=== PATIENT | female | born 1995 | race Caucasian/White ===

== ENCOUNTER 2019-11-03 09:21 | Emergency (ER) | payer OTHER, MEDICAID, SELFPAY ==
[2019-11-03 09:22] VITALS: RESP 18
--- NOTE | 2019-11-03 09:26 | ED_ITS ---
HPI - General: Chief complaint: General Medical Stated complaint: Cramps/preg Time Seen by Provider: 11/03/19 09:25 Source: patient Mode of arrival: ambulatory Limitations: no limitations History of Present Illness: HPI Narrative: Patient comes in today for complaints of pelvic cramping. Patient had a positive test at home 4 to 5 days ago. Patient reports last period was the first or second week of September 2019. Patient reports vaginal discharge but no bleeding. Patient appears well. Patient appears in mild to no pain. Review of Systems General: Reports: 10 or more systems reviewed and unremarkable except in HPI and below : Reports: pelvic pain (cramping during ) PFSH ED PFSH: Statuses (acute, chronic, etc) shown below reflect problem list status as previously entered and may not be historically accurate Social History Smoking and tobacco status: former smoker Physical Exam Const: COMMON NORMALS: no apparent distress and oriented x3 GENERAL APPEARANCE: cooperative HENMT: COMMON NORMALS: normocephalic, external ears normal, EAC's normal, TM's normal bilaterally and external nose normal HEAD & SCALP: normal to inspection and normocephalic FACE & SINUS: normal facial exam NOSE: external nose normal GENERAL EAR: hearing not grossly impaired EXTERNAL EAR: Yes external ears normal EXTERNAL AUDITORY CANAL: EAC's normal TYMPANIC MEMBRANE: TM's normal bilaterally MOUTH: oral and palatal mucosa normal THROAT: posterior oropharynx normal Eye: COMMON NORMALS: PERRL and EOMs intact bilaterally PUPIL: Yes PERRL Neck/C-Spine: COMMON NORMALS: full ROM and no lymphadenopathy Lymph: LYMPHATIC: no lymphedema noted Chest: COMMONS NORMALS: inspection of chest normal and palpation of chest normal Resp: COMMON NORMALS: normal respiratory effort and clear to auscultation bilaterally AUSCULTATION: clear to auscultation bilaterally Cardio: COMMON NORMALS: regular rate and regular rhythm RATE: regular rate RHYTHM: regular rhythm GI: COMMON NORMALS: normal to inspection, nondistended, normoactive bowel sounds and non-tender : COMMON NORMALS: Yes no CVA tenderness BLADDER/KIDNEY EXAM: Yes no CVA tenderness EXTERNAL FEMALE EXAM: Yes normal appearance of the urethra and Yes other (increase vaginal discharge) Back/Pelvis: COMMON NORMALS: no CVA tenderness and thoracic and lumbar spine normal to inspection Extremity: COMMON NORMALS: normal to inspection GENERAL: No edema Neuro: COMMON NORMALS: oriented x3, moves all extremities and no focal motor deficits Psych: COMMON NORMALS: mental status grossly normal and cooperative Skin: COMMON NORMALS: no rashes or lesions noted GENERAL SKIN EXAM: no rashes or lesions noted Course Vital Signs: Vital signs: Vital Signs Temperature 97.5 F L 11/03/19 09:28 Pulse Rate 72 11/03/19 11:44 Respiratory Rate 16 11/03/19 11:44 Blood Pressure 106/53 11/03/19 11:44 Pulse Oximetry 100 11/03/19 11:44 MDM - OB/Uterine Contractions MDM Narrative: Medical decision making narrative: Patient comes in with concerns of pelvic cramping and vaginal discharge. On exam patient has no abdominal pain with palpation. No CVA tenderness. External vaginal area was normal except for increased discharge. Respirations are even lungs are clear to auscultation. Skin is warm and dry and color is pink. Vital signs are stable. Differential diagnosis includes miscarriage, threatened spontaneous , UTI, vaginitis, STI, PID, ectopic . Ultrasound noted no ectopic and intrauterine . Urinalysis was normal. Wet prep showed no signs of trichomonas, yeast, or clue cells. Patient was B positive for her blood type, and laboratory values were insignificant. Reassured patient that appears well. Discussed drinking plenty of fluids and monitoring for fever. Patient reports understanding agreed to plan with need for follow-up with [facility]. Patient reports getting appointment for [address] Ball. Lab Data: Labs: Lab Results 11/03/19 11/03/19 11/03/19 Range/Units 09:36 09:36 09:47 WBC 10.7 H (4.0-10.0) 10^3/ uL RBC 4.25 (4.1-5.3) 10^6/u L Hgb 13.1 (11.5-15.3) g/dL Hct 37.6 (37.0-47.0) % MCV 88.5 (81-99) fL MCH 30.8 (28.0-34.0) pg MCHC 34.8 (30.0-36.0) g/dL RDW 11.5 L (12.1-15.1) % Plt Count 309 (130-400) 10^3/c mm MPV 9.8 (7.4-10.4) fL Neut % (Auto) 67.7 % Lymph % (Auto) 20.1 % [place] % (Auto) 6.4 % Eos % (Auto) 5.0 % Baso % (Auto) 0.5 % Neut # (Auto) 7.3 (1.8-7.7) 10^3/u L Lymph # (Auto) 2.2 (0.8-4.8) 10^3/u L [place] # (Auto) 0.7 (0.2-0.9) 10^3/u L Eos # (Auto) 0.5 (0.0-0.8) 10^3/u L Baso # (Auto) 0.1 (0.0-0.1) 10^3/u L Nucleated RBC % (a uto) 0 % Nucleated RBCs # 0.0 /100WBC Sodium 134 L (136-145) mmol/L Potassium 3.7 (3.5-5.1) mmol/L Chloride 98 (98-107) mmol/L Carbon Dioxide 22 (22-29) mmol/L Anion Gap 17.7 (5-19) BUN 17 (6-20) mg/dL Creatinine 0.8 (0.5-0.9) mg/dL GFR Calculation 87.4 L (90-130) mL/min Glucose 99 (74-109) mg/dL Calcium 10.0 (8.5-10.5) mg/dL Total Bilirubin 0.2 (0.15-1.2) mg/dL AST 18 (0-32) U/L ALT 25 (0-33) U/L Alkaline Phosphata se 60 (35-105) IU/L Total Protein 7.4 (6.6-8.7) g/dL Albumin 4.7 (3.5-5.2) g/dL Globulin 2.7 (1.3-4.6) g/dL Lipase 49 (13-60) U/L Ser , [place] 35455.00 mIU/mL Urine Color (Yellow) Urine Appearance (CLEAR) Urine pH (5-7) Ur Specific Gravit y (1.005-1.030) Urine Protein (Negative) Urine Glucose (UA) (Normal) Urine Ketones (Negative) Urine Occult Blood (Negative) Urine Nitrate (Negative) Urine Bilirubin (NEGATIVE) Urine Urobilinogen (Negative) mg/dL Ur Leukocyte Leonor ase (Negative) Urine RBC (0-2) /hpf Urine WBC (0-5) /hpf Ur Squamous Epith Cells (0-5) Urine Bacteria (NONE) Urine Mucus Blood Type B Positive 11/03/19 Range/Units 09:48 WBC (4.0-10.0) 10^3/ uL RBC (4.1-5.3) 10^6/u L Hgb (11.5-15.3) g/dL Hct (37.0-47.0) % MCV (81-99) fL MCH (28.0-34.0) pg MCHC (30.0-36.0) g/dL RDW (12.1-15.1) % Plt Count (130-400) 10^3/c mm MPV (7.4-10.4) fL Neut % (Auto) % Lymph % (Auto) % [place] % (Auto) % Eos % (Auto) % Baso % (Auto) % Neut # (Auto) (1.8-7.7) 10^3/u L Lymph # (Auto) (0.8-4.8) 10^3/u L [place] # (Auto) (0.2-0.9) 10^3/u L Eos # (Auto) (0.0-0.8) 10^3/u L Baso # (Auto) (0.0-0.1) 10^3/u L Nucleated RBC % (a uto) % Nucleated RBCs # /100WBC Sodium (136-145) mmol/L Potassium (3.5-5.1) mmol/L Chloride (98-107) mmol/L Carbon Dioxide (22-29) mmol/L Anion Gap (5-19) BUN (6-20) mg/dL Creatinine (0.5-0.9) mg/dL GFR Calculation (90-130) mL/min Glucose (74-109) mg/dL Calcium (8.5-10.5) mg/dL Total Bilirubin (0.15-1.2) mg/dL AST (0-32) U/L ALT (0-33) U/L Alkaline Phosphata se (35-105) IU/L Total Protein (6.6-8.7) g/dL Albumin (3.5-5.2) g/dL Globulin (1.3-4.6) g/dL Lipase (13-60) U/L Ser , Paul i-Qnt mIU/mL Urine Color Yellow (Yellow) Urine Appearance Clear (CLEAR) Urine pH 5.0 (5-7) Ur Specific Gravit y 1.025 (1.005-1.030) Urine Protein Neg (Negative) Urine Glucose (UA) Norm (Normal) Urine Ketones Negative (Negative) Urine Occult Blood Neg (Negative) Urine Nitrate Negative (Negative) Urine Bilirubin Neg (NEGATIVE) Urine Urobilinogen Norm (Negative) mg/dL Ur Leukocyte Leonor ase Negative (Negative) Urine RBC 0-4 H (0-2) /hpf Urine WBC None (0-5) /hpf Ur Squamous Epith Cells 0-4 H (0-5) Urine Bacteria Trace (NONE) Urine Mucus Trace Blood Type Discharge Plan Discharge Patient Disposition: Home, Self-Care Clinical Impression: Abdominal pain affecting Qualifiers: Weeks of gestation: less than 8 weeks Qualified Code(s): Z3A.01 - Less than 8 weeks gestation of Condition: Stable Discharge Orders: Discharge Order (Routine); Ordered 11/03/19 Ordered By: Shankar Mora Discharge Diet: Advance as tolerated Discharge Activity: Increase activity as tolerated Patient Instructions: (ED) Activity Restrictions/Additional Instructions: Drink plenty of water Activity as tolerated Healthy diet and exercise Follow-up with [facility] for further treatment No smoking or drinking alcohol with We will contact you in regards to any outstanding labs if they are positive Return to ER for high fever or bleeding greater than one pad in a hour that is saturated. Discharge Date/Time: 11/03/19 11:46 Coding Level of Care Code ED Table Games Dealer for Tre Montemayor
[2019-11-03 09:28] VITALS: BP 143/76; RESP 16; TEMP 36.4; O2SAT 100; BMI 34.5
--- NOTE | 2019-11-03 09:33 | US_ITS ---
WS: [id number] EARLY OBSTETRICAL ULTRASOUND (<14 WEEKS). HISTORY: abd cramping, vaginal discharge COMPARISON: None available. Single intrauterine gestational sac is identified. Cardiac activity at 114 BPM. Ludell-rump length aisha sures 0.4 cm which corresponds to a gestation of 6w1d. Normal-appearing yolk sac and amnion demonstra jagruti. No subchorionic hemorrhage. No free fluid. RIGHT ovary is enlarged measuring 2.5 x 4.3 x 2.4 cm. There is a simple cyst within the RIGHT ovary m easuring 2.1 x 1.7 x 2.0 cm. Mild peripheral hyperemia. LEFT ovary is normal size at 1.8 x 3.0 x 1.8 cm. US/US OB <= 14 weeks fetus [id number] IMPRESSION: 1. Single intrauterine gestation of 7 weeks 0 days with an EDC of 06/21/2020. 2. RIGHT ovarian corpus luteal cyst.
[2019-11-03 09:40] LABS: Basophils # 0.1 10^3/uL (0.0-0.1); Basophils % 0.5 %; Eosinophils # 0.5 10^3/uL (0.0-0.8); Hematocrit 37.6 % (37.0-47.0); Hemoglobin 13.1 g/dL (11.5-15.3); Lymphocytes # 2.2 10^3/uL (0.8-4.8); Lymphocytes % 20.1 %; Mean Corpuscular HGB Conc 34.8 g/dL (30.0-36.0); Mean Corpuscular Hemoglobin 30.8 pg (28.0-34.0); Mean Corpuscular Volume 88.5 fL (81-99); Mean Platelet Volume 9.8 fL (7.4-10.4); Monocytes # 0.7 10^3/uL (0.2-0.9); Monocytes % 6.4 %; Neutrophils # 7.3 10^3/uL (1.8-7.7); Neutrophils % 67.7 %; Nucleated Red Blood Cells % 0 %; Platelet Count 309 10^3/cmm (130-400); Red Blood Count 4.25 10^6/uL (4.1-5.3); Red Cell Distribution Width 11.5 % (12.1-15.1); White Blood Count 10.7 10^3/uL (4.0-10.0)
[2019-11-03 10:08] LABS: Alanine Aminotransferase 25 U/L (0-33); Albumin Level 4.7 g/dL (3.5-5.2); Alkaline Phosphatase 60 IU/L (35-105); Anion Gap 17.7 (5-19); Aspartate Amino Transferase 18 U/L (0-32); Blood Urea Nitrogen 17 mg/dL (6-20); Carbon Dioxide 22 mmol/L (22-29); Chloride 98 mmol/L (98-107); Globulin 2.7 g/dL (1.3-4.6); Glomerular Filtration Rate 87.4 mL/min (90-130); Glucose 99 mg/dL (74-109); Lipase 49 U/L (13-60); Potassium 3.7 mmol/L (3.5-5.1); Sodium 134 mmol/L (136-145); Total Bilirubin 0.2 mg/dL (0.15-1.2); Total Protein 7.4 g/dL (6.6-8.7)
[2019-11-03 10:24] LABS: Bilirubin Urine Neg (NEGATIVE); Blood Urine Neg (Negative); Glucose Urine UA Norm (Normal); Ketones Urine Negative (Negative); Leukocyte Esterase Urine Negative (Negative); Nitrate Urine Negative (Negative); Protein Urine Neg (Negative); Specific Gravity, Urine 1.025 (1.005-1.030); Urine Appearance Clear (CLEAR); Urine Color Yellow (Yellow); Urobilinogen Urine Norm (Negative)
[2019-11-03 10:28] LABS: Add Urine Culture? No; Bacteria Urine TRACE; Mucus Urine TRACE; RBC Urine 0-4 /hpf (0-2); Squamous Epithelial Cell Urine 0-4 (0-5)
[2019-11-03 11:44] VITALS: BP 106/53; PULSE 72; RESP 16; O2SAT 100
--- NOTE | 2019-11-05 11:07 | DCPLANNER ---
Addendum entered by Meenu Parmar 11/27/19 09:49: [facility], called case advocate and stated that the clinic has tried numerous times to reach patient to schedule a follow up appointment and has not been able to reach patient to schedule an appointment. Addendum entered by Meenu Parmar 11/24/19 15:19: manager quality improvement called to confirm that a follow up appointment had been scheduled for patient, case advocate spoke with Marleny was told that an appointment has not been scheduled at this time, but that the clinic is working on scheduling an appointment. Original Note: manager quality improvement had message to schedule a follow up appointment for patient with [facility]. manager quality improvement called [facility], gave referral to [place]. manager quality improvement was told that referral would be given to Marleny. manager quality improvement will call for appointment information.
== END 2019-11-03 11:46 | disposition home or self-care (01) ==
PROVIDERS: Emergency Provider Nurse Practitioner Family
DX: O26.891 Other specified pregnancy related conditions, first trimester (principal); R10.9 Unspecified abdominal pain; Z3A.01 Less than 8 weeks gestation of pregnancy; Z87.891 Personal history of nicotine dependence
CPT/HCPCS: 36415; 76801; 80053; 81001; 83690; 84702; 85025; 86900; 87210; 99283

== ENCOUNTER → 2019-11-14 18:04 | Outpatient (BNVA) | payer OTHER, MEDICAID, SELFPAY | PROVIDERS: Visit Provider Family Medicine | DX: J10.1 Influenza due to other identified influenza virus with other respiratory manifestations (principal); R05 Cough | CPT/HCPCS: 81003; 87804 ==

== ENCOUNTER 2020-06-27 07:34 | Inpatient (IN) | payer MEDICAID, SELFPAY ==
[2020-06-27] VITALS (76 sets, daily range): BP systolic 0–165; BP diastolic 0–92; PULSE 28–128; RESP 16–22; TEMP 36.7–37.1; O2SAT 83–100; BMI 40.6
[2020-06-27] MEDS: miSOPROStol 100 mcg tablet 25 MCG VAGINAL ×2 (09:10→15:30)
[2020-06-27 10:29] LABS: Basophils # 0.1 10^3/uL (0.0-0.1); Basophils % 0.5 %; Eosinophils # 0.3 10^3/uL (0.0-0.8); Hematocrit 40.5 % (37.0-47.0); Hemoglobin 13.6 g/dL (11.5-15.3); Lymphocytes # 1.8 10^3/uL (0.8-4.8); Lymphocytes % 13.8 %; Mean Corpuscular HGB Conc 33.6 g/dL (30.0-36.0); Mean Corpuscular Hemoglobin 30.4 pg (28.0-34.0); Mean Corpuscular Volume 90.6 fL (81-99); Mean Platelet Volume 11.1 fL (7.4-10.4); Monocytes # 0.7 10^3/uL (0.2-0.9); Monocytes % 5.4 %; Neutrophils # 10.27 10^3/uL (1.8-7.7); Neutrophils % 77.6 %; Nucleated Red Blood Cells % 0 %; Platelet Count 279 10^3/cmm (130-400); Red Blood Count 4.47 10^6/uL (4.1-5.3); Red Cell Distribution Width 12.8 % (12.1-15.1); White Blood Count 13.2 10^3/uL (4.0-10.0)
[2020-06-27 10:36] LABS: Amphetamines Screen Urine Negative (Negative); Barbiturates Screen Urine Negative (Negative); Benzodiazepines Screen Urine Negative (Negative); Cocaine Screen Urine Negative (Negative); Opiate Screen Urine Negative (Negative); PCP Screen Urine Negative (Negative); THC Screen Urine Negative (Negative)
[2020-06-27] MEDS: lactated ringers 1,000 ML 999 ML IV ×3 (13:21→19:40)
[2020-06-27] MEDS: alum-mag-hydroxide-sime 30 mL UDC PO (15:50)
--- NOTE | 2020-06-27 16:12 | PC.NURSE ---
Nurse noted drop in FHR at 1540 and entered the room at 1541 to find the pt in supine position This nurse assisted pt to left lateral position and started a LR fluid bolus. FHR returned to normal baseline, with no accelerations. This nurse assisted pt to right lateral position at 1553. FHT improving and accelerations now present.
[2020-06-27] MEDS: fentaNYL 50 mcg/mL INJ 2mL IV (18:33)
--- NOTE | 2020-06-27 20:15 | P.ANESUD_ITS ---
Pre-Anesthetic Update Pre-Anesthetic Assessment: Date of Surgery/Procedure: 06/27/20 Preop Rosanna gnosis: IUP Any changes to Pre-Anesthetic Assessment?: No Labs Last 48hrs: Laboratory Results - last 48 hr 06/27/20 06/27/20 08:00 08:54 WBC 13.2 H RBC 4.47 Hgb 13.6 Hct 40.5 MCV 90.6 MCH 30.4 MCHC 33.6 RDW 12.8 Plt Count 279 MPV 11.1 H Neut % (Auto) 77.6 Lymph % (Auto) 13.8 [place] % (Auto) 5.4 Eos % (Auto) 2.0 Baso % (Auto) 0.5 Neut # (Auto) 10.27 H Lymph # (Auto) 1.8 [place] # (Auto) 0.7 Eos # (Auto) 0.3 Baso # (Auto) 0.1 Nucleated RBC % (a uto) 0 Nucleated RBCs # 0.0 Urine Opiates Scre en Negative Ur Barbiturates Sc reen Negative Ur Phencyclidine S crn Negative Ur Amphetamines Sc reen Negative U Benzodiazepines Scrn Negative Urine Cocaine Scre en Negative U Marijuana (THC) Screen Negative Vitals: Temperature 98.7 F 06/27/20 16:54 Temperature Source Oral 06/27/20 16:54 Pulse Rate 78 06/27/20 20:35 Pulse Rhythm 06/27/20 09:58 Pulse Strength 3+ Normal 06/27/20 09:58 Respiratory Rate 22 H 06/27/20 18:33 Respiratory Effort Non-Labored 06/27/20 20:00 Respiratory Depth Normal 06/27/20 20:00 Respiratory Patter n 06/27/20 20:00 Blood Pressure 0/0 06/27/20 20:40 Blood Pressure Malgorzata n 0 06/27/20 20:40 Pulse Oximetry 98 06/27/20 20:38 Oxygen Delivery Me thod 06/27/20 09:58 Exam: Pre-Anes Outpt Exam: alert, oriented x 3, clear to auscultation bilaterally and regular rate & rhythm Cardiac Studies: No Data to Display
--- NOTE | 2020-06-27 20:47 | ANES.PROC ---
Anesthesia Procedures Procedure/Date: 06/27/20 Epidural: Time Out Performed: Yes Consents Signed: Procedure Consent Consent: requested by attending/covering physician, from patient and emergency procedure Lumbar Level: L3-L4 Epidural position: sitting Epidural procedure: sterile prep of area, 1% lidocaine to numb the area, 18 g needle, neg for paresthesia, test dose given, 1.5% xylocaine 1:200k epi (3 cc), 0.2% Ropivacaine bolus ml (5 ml), placed PCEA, no systemic response, sterile dressing applied and 0.2% Ropiavacaine @ mls/hr (13) Additional Comments: OSKAR at 7 cm, threaded to 12.5 cm. Pain of contraction decreased from 8/10 to 3/10 after lidocaine 1.5% 5 cc and 5 ml pcea bolus. Still having pressure on anus.
[2020-06-27] MEDS: lactated ringers 1,000 ML 125 ML IV (21:27)
[2020-06-27] MEDS: diphenhydrAMINE 50 mg/mL SDV 1mL 25 MG IVP (23:32)
[2020-06-28] VITALS (25 sets, daily range): BP systolic 0–152; BP diastolic 0–89; PULSE 68–110; RESP 16–18; TEMP 36.6–37.1; O2SAT 97–99
[2020-06-28] MEDS: oxytocin 30 UNIT/500 ML BAG 600 UNIT IV (01:12)
--- NOTE | 2020-06-28 01:37 | PM.DELIVERY ---
Delivery Note: Date of delivery: June 28, 2020 this 25-year-old 1 now para 1 female with an EDC of 06/22/2020 was postdates and not making much change. Discussion was made with the patient regarding possible misoprostel cervical ripening for induction purposes. Her was present for the discussion. She agreed to proceed with misoprostol cervical ripening at around 40 weeks and 5 days gestation. She received 2 doses of misoprostol 25 mcg intravaginally and began having active labor. She became more uncomfortable and then went spontaneous rupture of membranes after epidural anesthesia was placed. The fluid was clear. There were the times when the heart tones were nonreassuring but that generally resolved with re-positioning the patient. She dilated to complete cervical dilatation and pushed for about an hour and a half for delivery by spontaneous vaginal delivery healthy, viable male infant at 010 1 AM. The was delivered in left occiput anterior position with suctioning of the mouth and the nose at the perineum followed by delivery of the remainder the infant. There was no nuchal cord. A small segment repeat to nd was made for the delivery with minimal extension. Upon delivery of the remainder of the infant the was suctioned again with bulb suction and laid on the mother's abdomen. At approximately 1 minute gestation the umbilical cord was clamped and then cut by the infant's father. Both cord had 3 blood vessels. The infant had Apgars of 8 and 9 at 1 and 5 minutes respectively and weighed 6 pounds 9 ounces. Midline second-degree episiotomy was sutured with Vicryl suture in layered closure. Estimated blood loss approximately 145 mL. Pre-Delivery Course: This patient was followed by this physician throughout her entire course without problems or concerns. Maternal blood type was B+ with antibody screen negative. Hepatitis B, hepatitis C, RPR and HIV were negative. Rubella was immune and group B strep was negative. She did continue her through 40 weeks gestation and after much discussion the decision was made to proceed with misoprostel correcting at 40 weeks and 5 days gestation. Delivery: Spontaneous vaginal delivery. Post-Delivery Status: Patient is doing well at this time and will be followed for routine post delivery care. A&P Assessment and plan (1) Normal spontaneous vaginal delivery: Patient will be followed for routine care. Will adjust treatment and orders as necessary. Status: Acute Coding Level of Care Code Acute Dope Mixer for Luisg Fwd Diagnoses Normal spontaneous vaginal delivery O80
[2020-06-28] MEDS: prenatal vitamin Capsule 1 CAP PO (08:09)
[2020-06-28] MEDS: docusate sodium 100 mg Capsule PO ×2 (08:09→18:09)
--- NOTE | 2020-06-28 10:04 | ANE.PACU2 ---
Inpatient post-anesthesia follow up: Airway intact: Yes Vital signs: Temperature 98.4 F Pulse Rate 68 Respiratory Rate 18 Blood Pressure 124/71 Pulse Oximetry 99 Oxygen Delivery Me thod Room Air Oxygen Flow Rate Fraction of Inspir ed Oxygen Hydration adequate: Yes Nausea and vomiting: No Pain level: 2 Mental status: Baseline Additional Comments: no headaches, no backpain, no signs of infection at neuraxial site, urinating ok, no lower extremity numbness/weakness
[2020-06-28 13:28] LABS: Hematocrit 36.5 % (37.0-47.0); Mean Corpuscular HGB Conc 32.9 g/dL (30.0-36.0); Mean Corpuscular Hemoglobin 30.5 pg (28.0-34.0); Mean Corpuscular Volume 92.6 fL (81-99); Mean Platelet Volume 10.4 fL (7.4-10.4); Platelet Count 232 10^3/cmm (130-400); Red Blood Count 3.94 10^6/uL (4.1-5.3); Red Cell Distribution Width 13.1 % (12.1-15.1); White Blood Count 18.2 10^3/uL (4.0-10.0)
--- NOTE | 2020-06-28 19:41 | PC.NURSE ---
Discussed and demonstrated nursing positions, how often to breastfeed, latching techniques, how to identify swallowing, hand expression, nursing bras and bra size.
[2020-06-29 06:18] VITALS: BP 141/99; PULSE 80; RESP 16; O2SAT 99
--- NOTE | 2020-06-29 06:56 | PM.OBGYDC ---
Discharge Providers IRRIGATOR VALVE PIPE Date of Admission: 06/27/20 07:34 Date of Discharge: 06/29/20 Attending Provider at Admission: Tanner Ball MD Attending Provider at Discharge: Tanner Ball MD Diagnoses at Discharge Discharge Diagnosis (1) Normal spontaneous vaginal delivery: Status: Acute Reason for Visit Reason for Visit: Induction of Labor Hospital Course Hospital Course: Patient has done well since delivery. She has mild lochia and is not passing much clots. She is ambulating well and tolerating a regular diet. Baby is breast-feeding fair and she was working with product safety specialist to assist this. Information Peripartum Data: Infant Delivery Method: Vaginal Physical Exam Const: COMMON NORMALS: no acute distress and patient oriented x3 Resp: COMMON NORMALS: normal respiratory effort, No retractions, No use of accessory muscles and clear to auscultation bilaterally AUSCULTATION: clear to auscultation bilaterally Cardio: COMMON NORMALS: regular rate, regular rhythm and No murmurs present (Cardio) RATE: regular rate RHYTHM: regular rhythm GI: COMMON NORMALS: Normal to inspection, nondistended, normoactive bowel sounds present, Soft to palpation (Fundus is firm.) and non-tender PALPATION: Yes Soft to palpation (Fundus is firm.) Extremity: COMMON NORMALS: normal to inspection, full ROM and no pedal edema Neuro: COMMON NORMALS: patient oriented x3, CN's II-XII intact bilaterally, moves all extremities and no focal motor deficits Psych: COMMON NORMALS: mental status grossly normal, Normal thought process present and activity/motor behavior normal THOUGHT PROCESS: Normal thought process present Urinary Catheter Management^: Gregg: Cath Placed During This Visit: yes, but has since been removed by the nurse Reason for Continuing Indwelling Catheter: Acute Urinary Retention or Obstruction Urinary Catheter Date of Insertion: 06/27/20 Urinary Catheter Time of Insertion: 21:20 Date Urinary Catheter Removed: 06/27/20 Time Urinary Catheter Discontinued: 22:46 Discharge Data Data Completed and Pending: Labs from last 24 hours 06/28/20 13:15 WBC 18.2 H RBC 3.94 L Hgb 12.0 Hct 36.5 L MCV 92.6 MCH 30.5 MCHC 32.9 RDW 13.1 Plt Count 232 MPV 10.4 Vitals: Last Vital Signs Temp 97.9 F 06/28/20 22:01 Pulse 80 06/29/20 06:18 Resp 16 06/29/20 06:18 BP 141/99 06/29/20 06:18 Pulse Ox 99 06/29/20 06:18 Discharge Plan Discharge Patient Disposition: Home Condition: Stable Prescriptions: New ibuprofen 800 mg Tablet 800 mg PO TID Qty: 90 RF: 3 docusate sodium 100 mg Capsule 100 mg PO BID Qty: 60 RF: 2 Continued omeprazole 10 mg Capsule,Delayed Release(Dr/Ec) 10 mg PO DAILY RF: 0 Vitamin Plus Low Iron 27 mg iron- 1 mg tablet 1 tab PO DAILY RF: 0 Discharge Orders: Discharge Order (Routine); Ordered 06/29/20 Ordered By: Tanner Ball Referrals: Tanner Ball MD [Physician] - (Follow-up with Dr. Ball in 6 weeks and as needed. Please make appointment before discharge.) Discharge Diet: Usual diet Discharge Activity: Resume usual activity Discharge Attestations IRRIGATOR VALVE PIPE Time Spent in Discharge Care*: less than 30 min Specific Discharge Activities: Specific discharge activities: educating patient, documenting/other paperwork and evaluating patient/reviewing data Status at Discharge: Cognitive status at discharge: cognitively intact, Behavioral status at discharge: cooperative, Functional status at discharge: independent ambulation Coding Level of Care Code Acute Clinical Laboratory Aide for Chg Fwd Diagnoses Normal spontaneous vaginal delivery O80
[2020-06-29] MEDS: prenatal vitamin Capsule 1 CAP PO (07:59)
[2020-06-29] MEDS: docusate sodium 100 mg Capsule PO (07:59)
[2020-06-29 09:30] VITALS: BP 106/70; PULSE 93; RESP 16; TEMP 36.7; O2SAT 97
[2020-06-29 09:50] VITALS: BP 106/70; PULSE 93; RESP 16; TEMP 36.7; O2SAT 97
== END 2020-06-29 09:50 | disposition home or self-care (01) | DRG 807 ==
PROVIDERS: Admitting Provider Family Medicine; Visit Provider Family Medicine
DX: O48.0 Post-term pregnancy (principal); Z37.0 Single live birth; Z3A.40 40 weeks gestation of pregnancy; O70.1 Second degree perineal laceration during delivery
CPT/HCPCS: 12345; 36415; 51702; 59409; 80306; 85025; 85027; 96374; 96375; 98960; J1200; J2795; J3010

== ENCOUNTER → 2020-10-18 16:33 | Outpatient (BNVA) | payer MEDICAID, SELFPAY | PROVIDERS: Visit Provider Nurse Practitioner Family | DX: Z20.828 Contact with and (suspected) exposure to other viral communicable diseases (principal); J06.9 Acute upper respiratory infection, unspecified | CPT/HCPCS: 87635 ==

== ENCOUNTER → 2022-10-01 16:20 | Outpatient (BNVA) | payer MEDICAID, SELFPAY | PROVIDERS: Visit Provider Registered Nurse Neonatal Intensive Care | DX: S93.402A Sprain of unspecified ligament of left ankle, initial encounter (principal); M79.672 Pain in left foot; X58.XXXA Exposure to other specified factors, initial encounter | CPT/HCPCS: 73610; 73630 ==

== ENCOUNTER 2022-10-11 12:40 | Emergency (ER) | payer MEDICAID, SELFPAY ==
[2022-10-11 12:50] VITALS: BP 131/87; PULSE 82; RESP 16; TEMP 36.4; O2SAT 99
--- NOTE | 2022-10-11 13:27 | XR_ITS ---
WS: [id number] Left ankle, 3 views, 10/11/2022 Clinical Data: persisting ankle pain after fall Comparison: Left ankle, 10/01/2022 Findings: No fractures or dislocations are seen. The ankle mortise is normal. The talus and calcaneus are unrem arkable. No soft tissue swelling over the medial or lateral malleolus is seen. XR/XR ankle LT min 3V* [id number] Impression: Negative left ankle.
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
== END 2022-10-11 15:14 | disposition home or self-care (01) ==
PROVIDERS: Emergency Provider Nurse Practitioner Family; PCP Family Medicine
DX: S93.402A Sprain of unspecified ligament of left ankle, initial encounter (principal); S96.912A Strain of unspecified muscle and tendon at ankle and foot level, left foot, initial encounter; Z87.891 Personal history of nicotine dependence; V19.3XXA Pedal cyclist (driver) (passenger) injured in unspecified nontraffic accident, initial encounter
CPT/HCPCS: 73610; 97760; 99283; L4361

== ENCOUNTER → 2023-01-08 10:45 | Outpatient (BNVA) | payer MEDICAID, SELFPAY | PROVIDERS: PCP Family Medicine; Visit Provider Nurse Practitioner Women's Health | DX: Z01.419 Encounter for gynecological examination (general) (routine) without abnormal findings (principal) | CPT/HCPCS: 87255; 87529; 88175 ==

== ENCOUNTER 2023-03-26 14:05 | Outpatient (CLI) | payer MEDICAID, SELFPAY ==
--- NOTE | 2023-03-26 15:30 | US_ITS ---
WS: [id number] ULTRASOUND RIGHT BREAST HISTORY: Palpable nodule RIGHT breast. 27-year-old. COMPARISON: None available. TECHNIQUE: 2-D and Doppler. Ultrasound RIGHT breast is directed to the palpable abnormality. At 12:00 there is very minimally com plex cyst with no increased vascularity. Complex cyst at 12:00, 3 cm from the nipple measures 8 x 3 x 10 mm. Low level echoes throughout. Suspect this may be a hemorrhagic cyst or cyst with increased pr otein content. US/US breast RT limited* [id number] IMPRESSION: BI-RADS: 3-Probably Benign FOLLOW-UP: 6 Month Follow-up Recommend 6 month follow-up RIGHT breast complex cyst at 12:00.
== END 2023-03-26 14:06 | disposition home or self-care (01) ==
PROVIDERS: PCP Family Medicine; Visit Provider Obstetrics & Gynecology
DX: N60.01 Solitary cyst of right breast (principal); N63.15 Unspecified lump in the right breast, overlapping quadrants
CPT/HCPCS: 76642

== ENCOUNTER 2023-05-02 10:10 | Emergency (ER) | payer MEDICAID, SELFPAY ==
[2023-05-02 10:16] VITALS: BP 130/87; PULSE 71; RESP 15; TEMP 36.8; O2SAT 97
[2023-05-02 10:47] LABS: Basophils # 0.1 10^3/uL (0.0-0.1); Basophils % 0.8 %; Eosinophils # 0.5 10^3/uL (0.0-0.8); Eosinophils % 5.2 %; Hematocrit 40.4 % (37.0-47.0); Hemoglobin 13.8 g/dL (11.5-15.3); Lymphocytes # 2.3 10^3/uL (0.8-4.8); Lymphocytes % 24.2 %; Mean Corpuscular HGB Conc 34.2 g/dL (30.0-36.0); Mean Corpuscular Hemoglobin 30.9 pg (28.0-34.0); Mean Corpuscular Volume 90.6 fl (81-99); Mean Platelet Volume 9.8 fL (7.4-10.4); Monocytes # 0.5 10^3/uL (0.2-0.9); Monocytes % 5.3 %; Neutrophils % 64.3 %; Nucleated Red Blood Cells % 0 %; Platelet Count 325 10^3/cmm (130-400); Red Blood Count 4.46 10^6/uL (4.1-5.3); Red Cell Distribution Width 12.6 % (12.1-15.1); White Blood Count 9.3 10^3/uL (4.0-10.0)
[2023-05-02 10:57] LABS: HCG, Serum Qual Negative (Negative)
[2023-05-02 11:16] LABS: Alanine Aminotransferase 23 U/L (0-33); Albumin Level 4.2 g/dL (3.5-5.2); Alkaline Phosphatase 80 U/L (35-105); Anion Gap 16.3 (5-19); Aspartate Amino Transferase 22 U/L (0-32); Blood Urea Nitrogen 17 mg/dL (6-20); Calcium 8.9 mg/dL (8.5-10.5); Carbon Dioxide 21 mmol/L (22-29); Chloride 106 mmol/L (98-107); Globulin 2.7 g/dL (1.3-4.6); Glucose 124 mg/dL (65-115); Lipase 31 U/L (13-60); Osmolality Calculated 291 mOsm/kg (285-295); Potassium 4.3 mmol/L (3.5-5.1); Sodium 139 mmol/L (136-145); Total Bilirubin 0.3 mg/dL (0.15-1.2); Total Protein 6.9 g/dL (6.6-8.7)
--- NOTE | 2023-05-02 11:44 | PC.PHAR ---
pt states she takes care of her own medications-pt states she is still taking prozac 20mg daily ext shows last filled 02/26/23 30d/s pt states she had a build up-pt states she hasnt gotten a depo shot since oct 2022 rx written 03/20/23-
[2023-05-02 11:50] LABS: Add Urine Microscopic? YES; Bilirubin Urine Neg (Negative); Blood Urine Neg (Negative); Glucose Urine UA Norm (Normal); Ketones Urine Negative (Negative); Leukocyte Esterase Urine Negative (Negative); Nitrate Urine Negative (Negative); Protein Urine Neg (Negative); Urine Appearance SL Hazy (CLEAR); Urine Color Yellow (Yellow); Urobilinogen Urine Norm (Negative); pH Urine 6 (5-7)
[2023-05-02 11:51] LABS: Add Urine Culture? No; Bacteria Urine 1+ /hpf; Mucus Urine 1+ /hpf; RBC Urine 0-4 /hpf (0-2); Squamous Epithelial Cell Urine 0-4 /hpf (0-5); WBC Urine 0-4 /hpf (0-5)
--- NOTE | 2023-05-02 12:00 | CT_ITS ---
WS: [id number] CT ABDOMEN PELVIS TECHNIQUE: Contrast-enhanced CT of the abdomen and pelvis with coronal and sagittal reformatted image s. CLINICAL INFORMATION: rlq pain, n/v COMPARISON: None. DLP: 880.[address] scans at [facility] use at least one of these dose optimization techniques: automated e xposure control; mA and/or kV adjustment per patient size (includes targeted exams where dose is matc hed to clinical indication); or iterative reconstruction. FINDINGS: Normal appendix in the RIGHT lower quadrant. No evidence of acute appendicitis. Normal liver. Normal portal vein and splenic vein. Normal spleen. Normal GE junction. Adrenal glands are normal. Normal renal parenchymal enhancement. No hydronephrosis. Gallbladder appears normal. Norm al caliber abdominal aorta. Tiny fat-containing umbilical hernia. Multifollicular ovaries bilaterally. Physiologic endometrial th ickening. No free fluid in the abdomen or pelvis. CT/CT abdomen pelvis w con* [id number] IMPRESSION: 1. Normal appendix RIGHT lower quadrant. No evidence of acute appendicitis. 2. No free fluid in the abdomen or pelvis. 3. Tiny fat-containing umbilical hernia. 4. No other acute findings.
[2023-05-02 12:20] VITALS: BP 130/69; PULSE 68; RESP 18; O2SAT 100
--- NOTE | 2023-05-02 12:22 | ED_ITS ---
HPI - Abdominal Pain General: Chief Complaint: Abdominal Pain Stated Complaint: abd pain Time Seen by Provider: 05/02/23 11:24 History of Present Illness: Patient presents to the ER today with complaints of right lower quadrant abdominal pain. Patient states the pain started approximately 2 days ago and has been getting worse. Patient does have nausea with this but no vomiting. Patient states she has never had this pain before. Patient states she also had some suprapubic tenderness but denies any dysuria. Review of Systems General: Reports: 10 or more systems reviewed and unremarkable except in HPI and below PFSH ED PFSH: Family History Denies family history of Cervical cancer Colon cancer Ovarian cancer Diabetes Breast cancer Hypertension Uterine cancer Thyroid disease Stroke Social History Smoking and tobacco status: former smoker Alcohol intake: never Substance/Drug Use: never Physical Exam Const: COMMON NORMALS: no acute distress, average body habitus, patient oriented x3, no limitations, healthy appearing, alert and well nourished HENMT: COMMON NORMALS: normocephalic, atraumatic, hearing grossly normal bilaterally, external ears normal, Normal external nose present and moist oral mucous membranes HEAD & SCALP: normocephalic and atraumatic NOSE: Normal external nose present EXTERNAL EAR: Yes external ears normal Neck/C-Spine: COMMON NORMALS: full ROM, no lymphadenopathy, supple, no meningeal signs, no JVD and Thyroid normal THYROID: Thyroid normal Chest: COMMONS NORMALS: normal inspection of the chest and normal palpation of entire chest wall Resp: COMMON NORMALS: normal respiratory effort, No retractions, No use of accessory muscles and clear to auscultation bilaterally AUSCULTATION: clear to auscultation bilaterally Cardio: COMMON NORMALS: no JVD, regular rate, regular rhythm, S1 normal heart sound present, S2 normal heart sound present, No gallops present (Cardio), No clicks present (Cardio), No murmurs present (Cardio) and No rub (Cardio) RATE: regular rate RHYTHM: regular rhythm HEART SOUNDS: S1 normal heart sound present and S2 normal heart sound present GI: COMMON NORMALS: Normal to inspection, nondistended, normoactive bowel s ounds present, Soft to palpation, No hepatosplenomegaly present and no masses; negative for non-tender (Tender to palpate suprapubically and right lower quadrant. No rebound guar) PALPATION: Yes Soft to palpation and Yes No hepatosplenomegaly present : COMMON NORMALS: Yes no CVA tenderness BLADDER/KIDNEY EXAM: Yes no CVA tenderness Back/Pelvis: COMMON NORMALS: no CVA tenderness Neuro: COMMON NORMALS: patient oriented x3 SENSORIUM/ORIENTATION: Yes alert MENINGEAL SIGNS: Yes no meningeal signs Course Vital Signs: Vital signs: Vital Signs Temperature 98.3 F 05/02/23 10:16 Pulse Rate 68 05/02/23 12:20 Respiratory Rate 18 05/02/23 12:20 Blood Pressure 130/69 05/02/23 12:20 Pulse Oximetry 100 05/02/23 12:20 Oxygen Delivery Me thod Room Air 05/02/23 12:20 MDM - Abdominal Pain Medical Decision Making Presents to the ER with right lower quadrant pain and suprapubic pain. Physical exam was performed lab work was obtained as well as a abdomen pelvis CT. All of which was essentially benign, negative for acute appendicitis, white count was normal, UA negative for nitrites and leukocyte esterase. These findings was explained to the patient in detail. Patient will be discharged with diagnosis of right lower quadrant abdominal pain. Patient is to follow-up with her PCP in approximately 7 days. Differential Diagnosis Likely abdominal pain; Unlikely acute appendicitis, calculus of kidney, constipation, diverticulitis, endometriosis, gastroenteritis, pancreatitis or small bowel obstruction Medical Records I reviewed the patient's medical records. Lab Data I reviewed the patient's lab results. 05/02/23 10:36 05/02/23 10:36 Labs/Radiology: Radiology Impressions Abdomen/Pelvis CT 05/02/23 12:00 IMPRESSION: 1. Normal appendix RIGHT lower quadrant. No evidence of acute appendicitis. 2. No free fluid in the abdomen or pelvis. 3. Tiny fat-containing umbilical hernia. 4. No other acute findings. Laboratory Results WBC 9.3 10^3/uL (4.0-10.0) 05/02/23 10:36 RBC 4.46 10^6/uL (4.1-5.3) 05/02/23 10:36 Hgb 13.8 g/dL (11.5-15.3) 05/02/23 10:36 Hct 40.4 % (37.0-47.0) 05/02/23 10:36 MCV 90.6 fl (81-99) 05/02/23 10:36 MCH 30.9 pg (28.0-34.0) 05/02/23 10:36 MCHC 34.2 g/dL (30.0-36.0) 05/02/23 10:36 RDW 12.6 % (12.1-15.1) 05/02/23 10:36 Plt Count 325 10^3/cmm (130-400) 05/02/23 10:36 MPV 9.8 fL (7.4-10.4) 05/02/23 10:36 Neut % (Auto) 64.3 % 05/02/23 10:36 Lymph % (Auto) 24.2 % 05/02/23 10:36 Terry % (Auto) 5.3 % 05/02/23 10:36 Eos % (Auto) 5.2 % 05/02/23 10:36 Baso % (Auto) 0.8 % 05/02/23 10:36 Neut # (Auto) 6.00 10^3/uL (1.8-7.7) 05/02/23 10:36 Lymph # (Auto) 2.3 10^3/uL (0.8-4.8) 05/02/23 10:36 Terry # (Auto) 0.5 10^3/uL (0.2-0.9) 05/02/23 10:36 Eos # (Auto) 0.5 10^3/uL (0.0-0.8) 05/02/23 10:36 Baso # (Auto) 0.1 10^3/uL (0.0-0.1) 05/02/23 10:36 Nucleated RBC % (auto) 0 % 05/02/23 10:36 Nucleated RBCs # 0.0 /100WBC 05/02/23 10:36 Sodium 139 mmol/L (136-145) 05/02/23 10:36 Potassium 4.3 mmol/L (3.5-5.1) 05/02/23 10:36 Chloride 106 mmol/L (98-107) 05/02/23 10:36 Carbon Dioxide 21 mmol/L (22-29) L 05/02/23 10:36 Anion Gap 16.3 (5-19) 05/02/23 10:36 BUN 17 mg/dL (6-20) 05/02/23 10:36 Creatinine 0.6 mg/dL (0.5-0.9) 05/02/23 10:36 GFR Calculation 119.0 mL/min (90-130) 05/02/23 10:36 Glucose 124 mg/dL (65-115) H 05/02/23 10:36 Calculated Osmolality 291 mOsm/kg (285-295) 05/02/23 10:36 Calcium 8.9 mg/dL (8.5-10.5) 05/02/23 10:36 Total Bilirubin 0.3 mg/dL (0.15-1.2) 05/02/23 10:36 AST 22 U/L (0-32) 05/02/23 10:36 ALT 23 U/L (0-33) 05/02/23 10:36 Alkaline Phosphatase 80 U/L (35-105) 05/02/23 10:36 Total Protein 6.9 g/dL (6.6-8.7) 05/02/23 10:36 Albumin 4.2 g/dL (3.5-5.2) 05/02/23 10:36 Globulin 2.7 g/dL (1.3-4.6) 05/02/23 10:36 Lipase 31 U/L (13-60) 05/02/23 10:36 HCG, Qual Negative (Negative) 05/02/23 10:36 Urine Color Yellow (Yellow) 05/02/23 11:40 Urine Appearance Sl hazy (CLEAR) A 05/02/23 11:40 Urine pH 6 (5-7) 05/02/23 11:40 Ur Specific [place] 1.020 (1.005-1.030) 05/02/23 11:40 Urine Protein Neg (Negative) 05/02/23 11:40 Urine Glucose (UA) Norm (Normal) 05/02/23 11:40 Urine Ketones Negative (Negative) 05/02/23 11:40 Urine Blood Neg (Negative) 05/02/23 11:40 Urine Nitrate Negative (Negative) 05/02/23 11:40 Urine Bilirubin Neg (Negative) 05/02/23 11:40 Urine Urobilinogen Norm mg/dL (Negative) 05/02/23 11:40 Ur Leukocyte Esterase Negative (Negative) 05/02/23 11:40 Urine RBC 0-4 /hpf (0-2) H 05/02/23 11:40 Urine WBC 0-4 /hpf (0-5) H 05/02/23 11:40 Ur Squamous Epith Cells 0-4 /hpf (0-5) H 05/02/23 11:40 Amorphous Sediment Not Reportable 05/02/23 11:40 Urine Bacteria 1+ /hpf (NONE) H 05/02/23 11:40 Urine Mucus 1+ /hpf 05/02/23 11:40 Discharge Plan Discharge Patient Disposition: Home Clinical Impression: Abdominal pain, right lower quadrant Condition: Stable Prescriptions: No Action fluoxetine [Prozac] 20 mg capsule 20 mg PO DAILY Tylenol Ex Str Rapid Release 500 mg Tablet 1,000 mg PO Q6H PRN (Reason: Pain) ibuprofen 200 mg Tablet 800 mg PO Q6H PRN (Reason: Pain) Ventolin HFA 90 mcg/actuation Hfa Aerosol Inhaler 2 puff INHALATION QID PRN (Reason: Shortness Of Breath) Kratom Tablets 2 - 3 tab PO .THREE TIMES A WEEK Discharge Orders: Discharge ED (Routine); Ordered 05/02/23 Ordered By: James Villafana Referrals: Tanner Ball MD [Primary Care Provider] - Patient Instructions: Abdominal Pain (ED) Activity Restrictions/Additional Instructions: Your lab work and CT of the abdomen and pelvis was unremarkable. Please follow- up with your family practice physician in the next 7 days or sooner as needed for further evaluation and management. Coding Level of Care Code ED Brand Ambassador Promotional Model for Tre Montemayor
[2023-05-02] MEDS: iohexol 350 mg/mL 500 mL Btl (per mL) IV (13:07)
[2023-05-02] MEDS: ondansetron 2 mg/ML SDV 2 mL 4 MG IVP (13:30)
[2023-05-02 14:43] VITALS: BP 120/65; PULSE 70; RESP 16; O2SAT 98
== END 2023-05-02 14:25 | disposition home or self-care (01) ==
PROVIDERS: Physician Assistant; Emergency Provider Emergency Medicine; PCP Family Medicine
DX: R10.31 Right lower quadrant pain (principal); Z87.891 Personal history of nicotine dependence
CPT/HCPCS: 36415; 74177; 80053; 81001; 83690; 84703; 85025; 96374; 99285; J2405; Q9967

== ENCOUNTER 2024-02-11 15:32 | Emergency (ER) | payer MEDICAID, SELFPAY ==
[2024-02-11 16:03] VITALS: BP 116/74; PULSE 98; RESP 16; TEMP 36.7; O2SAT 96
--- NOTE | 2024-02-11 16:38 | ED_ITS ---
HPI - Extremity Problem General: Chief complaint: Extremity Injury, Lower Stated complaint: right side hip pain Time Seen by Provider: 02/11/24 15:57 Source: patient Mode of arrival: ambulatory Limitations: no limitations History of Present Illness: Patient is a nice 28-year-old female who presents to ED today along with family for evaluation of right hip pain. Patient states she has had pain in the hip for a few weeks but states over the past 3 days it has become excruciating. Patient feels like she has a hot poker jabbing her in the back of the hip. Pain seems to be worse with ambulation and standing although she still experiences discomfort while at rest. She has not noticed any redness or warmth to the hip joint. No swelling to the leg. She is not having any numbness, tingling, loss of sensation. She does feel like pain radiates from the right buttock down the back of her thigh. She is approximately 34 weeks . Her OB doctor is Dr. Dos Santos. Complaint: extremity pain Onset (ago): week(s) Pain Consistency: constant Location: right and lower extremity Severity scale (1-10): 10 Quality: burning and stabbing Radiation: none Relieving factors: nothing Exacerbating factors: range of motion, weight bearing and walking Associated symptoms: Reports no associated symptoms; Deny chest pain, fever(s) or rash Review of Systems Const: Denies: fever(s), chills, body aches, fatigue or malaise Card: Denies: chest pain Resp: Denies: dyspnea GI: Denies: abdominal pain : Denies: flank pain, dysuria or hematuria Musc: Reports: joint pain; Denies: neck pain, back pain, extremity pain, extremity swelling, joint swelling, joint redness, joint warmth or limited range of motion Skin/Breast: Denies: rash Neuro: Reports: difficulty walking (due to R hip pain); Denies: headache(s), numbness in extremities, weakness in extremities, sensory changes or dizziness PFS ED PFSH: Family History Denies family history of Cervical cancer Colon cancer Ovarian cancer Diabetes Breast cancer Hypertension Uterine cancer Thyroid disease Stroke Social History Smoking and tobacco/nicotine status: former use of tobacco/nicotine Alcohol intake: never Substance/Drug Use: never Physical Exam Const: COMMON NORMALS: no acute distress, patient oriented x3, no limitations, alert and well nourished GENERAL APPEARANCE: in distress (appears uncomfortable secondary to pain) ORIENTATION/CONSCIOUSNESS: Yes awake, Yes oriented to person, Yes oriented to place and Yes oriented to time HENMT: COMMON NORMALS: normocephalic and atraumatic HEAD & SCALP: normal to inspection, normocephalic and atraumatic Resp: COMMON NORMALS: normal respiratory effort GI: INSPECTION: Yes gravid abdomen : COMMON NORMALS: Yes no CVA tenderness BLADDER/KIDNEY EXAM: Yes no CVA tenderness Back/Pelvis: COMMON NORMALS: no CVA tenderness, thoracic and lumbar spine normal to inspection and no thoracic nor lumbar tenderness LUMBAR SPINE/LOWER BACK: No lumbar spinal tenderness PELVIS: Yes sciatic notch tenderness on the right SACROILIAC JOINTS: Yes SI joint(s) abnormal SI joint details: tender to palpation SACRUM: no tenderness COCCYX: no tenderness Extremity: COMMON NORMALS: normal to inspection and full ROM NARRATIVE EXTREMITY EXAM: NV intact GENERAL: Yes normal exam except as noted Neuro: COMMON NORMALS: patient oriented x3 SENSORIUM/ORIENTATION: Yes alert, Yes oriented to person, Yes oriented to place and Yes oriented to time Course Vital Signs: Vital signs: Vital Signs Temperature 98.0 F 02/11/24 16:03 Pulse Rate 98 02/11/24 16:03 Respiratory Rate 16 02/11/24 16:03 Blood Pressure 116/74 02/11/24 16:03 Pulse Oximetry 96 02/11/24 16:03 MDM - Extremity (Nontraumatic) Medical Decision Making Patient is having classic sacroiliitis exacerbated by her late status. We discussed how physiologic pelvic changes this late in most likely are contributing. She has been taking Tylenol at home without any relief. She is tearful in regards to her discomfort. I did speak to her OB provider Dr. Dos Santos about options she feels comfortable with at 34 weeks . She recommended patient purchasing an SI belt and she was comfortable with me placing her on steroids. She did state a very small amount of opiate pain medication if patient absolutely needed it. Patient did end up requesting a very small amount to use sparingly for severe pain. We discussed return precautions but otherwise she can follow-up with her PCP/OB. Medical Records I reviewed the patient's medical records. No radiology studies performed this visit Discharge Plan Discharge Patient Disposition: Home Clinical Impression: Sacroiliac pain during Condition: Stable Prescriptions: New prednisone 10 mg tablet 10 mg PO DAILY 5 Days Qty: 14 0RF Rx Instructions: Take 4 tabs on day 1-2, 3 tabs on day 3, 2 tabs on day 4, 1 tab on day 5 hydrocodone-acetaminophen 5-325 mg tablet 1 tab PO Q6H PRN (Reason: pain) Qty: 5 0RF No Action fluoxetine [Prozac] 20 mg capsule 20 mg PO DAILY Tylenol Ex Str Rapid Release 500 mg Tablet 1,000 mg PO Q6H PRN (Reason: Pain) ibuprofen 200 mg Tablet 800 mg PO Q6H PRN (Reason: Pain) Ventolin HFA 90 mcg/actuation Hfa Aerosol Inhaler 2 puff INHALATION QID PRN (Reason: Shortness Of Breath) Kratom Tablets 2 - 3 tab PO .THREE TIMES A WEEK Discharge Orders: Discharge ED (Routine); Ordered 02/11/24 Ordered By: Flor Castillo Referrals: Tanner Ball MD [Primary Care Provider] - Patient Instructions: Sacroiliitis (ED), Opioid Safety, Pain Management Activity Restrictions/Additional Instructions: As we discussed I am recommending you purchase an SI belt to help with your sacroiliac pain. We will also place you on a prednisone taper and give you a small amount of pain medications as you have requested. Please follow-up with your OB provider. Stand Alone Forms: Work/School Release Coding Level of Care Code ED Emergency Medcl Emt for Tre Montemayor
== END 2024-02-11 17:17 | disposition home or self-care (01) ==
PROVIDERS: Emergency Provider Physician Assistant; PCP Family Medicine
DX: O26.893 Other specified pregnancy related conditions, third trimester (principal); M46.1 Sacroiliitis, not elsewhere classified; Z3A.34 34 weeks gestation of pregnancy; Z87.891 Personal history of nicotine dependence
CPT/HCPCS: 99283

== ENCOUNTER 2024-03-14 08:32 | Outpatient (CLI) | payer MEDICAID, SELFPAY ==
[2024-03-14 08:30] VITALS: BMI 45.8
[2024-03-14 08:47] VITALS: BP 132/71; PULSE 90
[2024-03-14 08:48] VITALS: RESP 17; TEMP 36
[2024-03-14 08:58] VITALS: RESP 17
[2024-03-14 09:14] VITALS: BP 131/80; PULSE 89
[2024-03-14 09:43] VITALS: BP 131/80; PULSE 89
== END 2024-03-14 09:43 | disposition home or self-care (01) ==
LOC: OPOB 08:33 → OBGYN 08:34
PROVIDERS: PCP Family Medicine; Visit Provider Family Medicine
DX: O26.899 Other specified pregnancy related conditions, unspecified trimester (principal); Z3A.00 Weeks of gestation of pregnancy not specified; R10.9 Unspecified abdominal pain
CPT/HCPCS: 59025; 99211

== ENCOUNTER 2024-03-14 14:03 | Inpatient (IN) | payer MEDICAID, SELFPAY ==
[2024-03-14] VITALS (54 sets, daily range): BP systolic 112–180; BP diastolic 55–91; PULSE 74–134; RESP 16–18; TEMP 35.7–36.6; O2SAT 100; BMI 42.2
[2024-03-14] MEDS: fentaNYL 50 mcg/mL INJ 2mL IVP ×2 (14:30→15:50)
[2024-03-14] MEDS: dextrose 5%-lactated ringers 1,000 ML 125 ML IV (14:30)
[2024-03-14] MEDS: ampicillin 2,000 MG in sodium chloride 0.9% (plus) 50 ML 100 MG IV (14:32)
[2024-03-14 14:43] LABS: Basophils # 0.1 10^3/uL (0.0-0.1); Basophils % 0.3 %; Eosinophils # 0.2 10^3/uL (0.0-0.8); Eosinophils % 1.2 %; Hematocrit 37.9 % (36-47); Lymphocytes # 1.9 10^3/uL (0.8-4.8); Lymphocytes % 11.1 %; Mean Corpuscular HGB Conc 32.5 g/dL (30-55); Mean Corpuscular Hemoglobin 27.6 pg (27-33); Mean Corpuscular Volume 85.2 fl (85-98); Monocytes # 0.9 10^3/uL (0.2-0.9); Monocytes % 5.4 %; Neutrophils # 13.88 10^3/uL (1.8-7.7); Neutrophils % 81.1 %; Nucleated Red Blood Cells % 0 %; Platelet Count 302 10^3/cmm (157-399); Red Blood Count 4.45 10^6/uL (3.85-5.65); Red Cell Distribution Width 13.2 % (12.1-15.1); White Blood Count 17.11 10^3/uL (3.29-11.43)
[2024-03-14 15:01] LABS: Amphetamines Screen Urine Negative (Negative); Barbiturates Screen Urine Negative (Negative); Benzodiazepines Screen Urine Negative (Negative); Cocaine Screen Urine Negative (Negative); Opiate Screen Urine Negative (Negative); PCP Screen Urine Negative (Negative); THC Screen Urine Negative (Negative)
[2024-03-14] MEDS: lactated ringers 1,000 ML 999 ML IV ×2 (15:42→16:40)
[2024-03-14] MEDS: ROPivacaine syringe 100 MG/50 ML SYRINGE 12 MG EPIDURAL ×2 (16:35→19:29)
--- NOTE | 2024-03-14 16:43 | P.ANESASSM_ITS ---
Pre-Anesthetic Assessment Height/Weight: Height 1.57 m Weight 104.78 kg Pulse Resp BP Pulse Ox O2 Del Method 90 18 126/66 100 Room Air 03/14/24 16:40 03/14/24 15:50 03/14/24 16:40 03/14/24 16:37 03/14/24 14:00 epidural Familial anesthetic complications: none Was Beta Stephanie taken within 24 hours: N/A Was Clonidine taken within 24 hours: N/A Exam alert, oriented x 3, clear to auscultation bilaterally and regular rate & rhythm Metabolic Morbid Obesity Anesthetic Plan ASA status: 2 Anesthesia: Regional (specify below) Risk of > 500 ml blood loss (7ml/kg in children): Yes, adequate IV access and fluids planned Medications/Allergies Home Medications Medication Instructions Recorded Confirmed Last Taken Type fluoxetine 20 mg capsule (Prozac) 20 mg PO DAILY 06/03/22 05/02/23 03/13/24 20:00 History vits no.124-ferrous fum 1 tab PO DAILY 03/14/24 03/14/24 03/13/24 20:00 History 27 mg iron-folic acid 800 mcg tablet ( Vitamin) Allergies Allergy/AdvReac Type Severity Reaction Status Date / Time No Known Allergies Allergy Verified 05/02/23 10:20 Current Medications Generic Name Dose Route Start Last Admin Trade Name Tammy PRN Reason Stop Dose Admin Fentanyl 25 - 100 mcg 03/14/24 13:58 03/14/24 15:50 Fentanyl 50 Mcg/Ml Inj 2ml IVP 50 mcg Q1H PRN Administration SEVERE PAIN Dextrose/Lactated Ringer's 1,000 mls @ 125 mls/hr 03/14/24 14:00 03/14/24 14:30 Dextrose 5%-Lactated Ringers IV 125 mls/hr .Q8H JEANINE Administration Lactated Ringer's 1,000 mls @ 999 mls/hr 03/14/24 13:58 03/14/24 16:40 Lactated Ringers IV 999 mls/hr .Q1H1M PRN Administration Per L&D Rescitation Protocol Lactated Ringer's 1,000 mls @ 999 mls/hr 03/14/24 14:44 03/14/24 16:40 Lactated Ringers IV Infused .Q1H1M PRN Infusion See label comments Ropivacaine 100 mg in 50 mls @ 10 mls/hr 03/14/24 14:45 03/14/24 16:35 Naropin Syringe EPIDURAL 12 mls/hr .Q5H JEANINE Administration PFSH Anesthesia Family History Denies family history of Cervical cancer Colon cancer Ovarian cancer Diabetes Breast cancer Hypertension Uterine cancer Thyroid disease Stroke Social History Smoking and tobacco/nicotine status: former use of tobacco/nicotine Alcohol intake: never Substance/Drug Use: never Female Reproductive History : 2 Data Anesthesia 03/14/24 14:10 Short CBC 03/14/24 Range/Units 14:10 WBC 17.11 H (3.29-11.43) 10^3/uL Hgb 12.30 (11.27-16.99) g/dL Hct 37.9 (36-47) % MCV 85.2 (85-98) fl Plt Count 302 (157-399) 10^3/cmm Neut % (Auto) 81.1 % Neut # (Auto) 13.88 H (1.8-7.7) 10^3/uL Blood Bank 03/14/24 14:10 Blood Type B Positive Rho(D) Type Rh positive Antibody Screen Negative Cardiac Studies: 2 No Data to Display
--- NOTE | 2024-03-14 16:44 | ANES.PROC ---
Anesthesia Procedures Procedure/Date: 03/14/24 Epidural: Consents Signed: Procedure Consent Consent: requested by attending/covering physician, from patient, risks and benefits reviewed and patient agrees to proceed Lumbar Level: L3-L4 Epidural procedure: sterile prep of area, 1% lidocaine to numb the area, 18 g needle, negative for paresthesia passed, neg for paresthesia, test dose given, 1.5% xylocaine 1:200k epi (5 cc), 0.2% Ropivacaine bolus ml (5), placed PCEA, no systemic response, sterile dressing applied, L.U.D. no apparent complications and 0.2% Ropiavacaine @ mls/hr (12) Additional Comments: OSKAR at 5.5 cm, threaded to 12 cm. Patient reported significant decrease in pain of contraction following bolus
[2024-03-14] MEDS: AMPICILLIN IV (18:38)
[2024-03-14] MEDS: SODIUM CHLORIDE 0.9% IV (18:38)
[2024-03-14] MEDS: ondansetron 2 mg/ML SDV 2 mL 4 MG IVP (19:25)
[2024-03-14] MEDS: oxytocin 30 UNIT/500 ML BAG 600 UNIT IV (20:48)
--- NOTE | 2024-03-14 21:06 | PM.OPHPUD ---
Labor & Delivery H&P Update Date of Procedure: March 14, 2024 Date H&P Performed: 03/12/24 Admission Diagnosis: IUP at 38 weeks 3 days gestation in active labor Maternal group B strep positive Planned procedure: Expectant management of labor and delivery Ampicillin prophylaxis
--- NOTE | 2024-03-14 21:07 | PM.DELIVERY ---
Delivery Note: Date of delivery: March 14, 2024 Procedure: Normal spontaneous vaginal delivery Estimated blood loss (mL): 200 Pre-Delivery Course: Mother had routine care at [facility]. There were no complications during the . Delivery: This is a 28-year-old G2, P1 at 38 weeks 3 days gestation who presented to labor and delivery in active labor. She was admitted for expectant management and received an epidural for pain management. She was known to be GBS positive and received 2 doses of ampicillin prior to delivery. She had spontaneous rupture of membranes with clear fluid. She only had to push through 2 contractions and had a normal spontaneous vaginal delivery of a viable female infant weight 3250 g, 7 pounds 3 ounces, Apgars 9 and 10 over an intact perineum. The infant was suctioned at delivery and placed on the mother's chest. The cord was clamped and cut. The placenta was delivered grossly intact and normal to inspection. There was a second-degree laceration of the left labia that was sutured using 3-0 chromic. Mother and infant were doing well after delivery. History History History 1 Term 1 0 Miscarriages/Ectopic 0 Living Children 1 Coding Level of Care Code Acute Code for Chg Fwd
[2024-03-14] MEDS: benzocaine-menthol 78 gm Canister 1 SPRAY TOPICAL (23:05)
[2024-03-14] MEDS: acetaminophen 325 mg Tablet 650 MG PO (23:06)
[2024-03-15] VITALS (22 sets, daily range): BP systolic 103–145; BP diastolic 56–90; PULSE 68–93; RESP 15–17; TEMP 36.4–36.8; O2SAT 95–99
[2024-03-15] MEDS: acetaminophen 325 mg Tablet 650 MG PO (06:50)
[2024-03-15] MEDS: lactated ringers 1,000 ML 999 ML IV (08:24)
[2024-03-15] MEDS: citric acid-sodium citrate 30 mL UDC PO (08:27)
[2024-03-15] MEDS: metoclopramide 5 mg/mL SDV 2 mL 10 MG IVP (08:27)
[2024-03-15] MEDS: famotidine 20 mg/2 mL INJ IVP (08:28)
[2024-03-15 08:38] LABS: Hematocrit 35.1 % (36-47); Mean Corpuscular HGB Conc 31.9 g/dL (30-55); Mean Corpuscular Volume 87.8 fl (85-98); Mean Platelet Volume 10.5 fL (7.4-10.4); Platelet Count 197 10^3/cmm (157-399); Red Cell Distribution Width 13.4 % (12.1-15.1); White Blood Count 14.36 10^3/uL (3.29-11.43)
--- NOTE | 2024-03-15 08:42 | P.HP_ITS ---
Providers/Chief Complaint 2 Admitting Physician: Bailey Dos Santos MD Primary Care Provider: Tanner Ball MD Chief Complaint: CTX History of Present Illness Loretta Matthews is a 28 year old female G2 now P2 who had a normal spontaneous vaginal delivery of a viable female last evening. Throughout the entire the patient has wanted to undergo bilateral tubal ligation. She is still desires to have this done so we will proceed with that this morning. Review of Systems 2 Narrative: No fever, no chills no chest pain no shortness of breath, some abdominal cramping, average vaginal bleeding, pedal edema. Medications/Allergies Home Medications Medication Instructions Recorded Confirmed Last Taken Type fluoxetine 20 mg capsule (Prozac) 20 mg PO DAILY 06/03/22 05/02/23 03/13/24 20:00 History vits no.124-ferrous fum 1 tab PO DAILY 03/14/24 03/14/24 03/13/24 20:00 History 27 mg iron-folic acid 800 mcg tablet ( Vitamin) Allergies Allergy/AdvReac Type Severity Reaction Status Date / Time No Known Allergies Allergy Verified 05/02/23 10:20 PFSH Acute 2 PFSH: Family History Denies family history of Cervical cancer Colon cancer Ovarian cancer Diabetes Breast cancer Hypertension Uterine cancer Thyroid disease Stroke Social History Smoking and tobacco/nicotine status: former use of tobacco/nicotine Alcohol intake: never Substance/Drug Use: never Female Reproductive History: : 2 Vitals/I&O/Wt Last Vital Signs Temp 96.3 F L 03/14/24 18:43 Pulse 86 03/15/24 04:45 Resp 16 03/14/24 18:43 BP 119/79 03/15/24 04:45 Pulse Ox 100 03/14/24 17:07 O2 Del Method Room Air 03/14/24 14:00 03/14/24 03/15/24 03/15/24 22:59 06:59 14:59 Intake Total 2050.0 / 2050.0 Output Total 550 / 550 Balance 1500.0 / 1500.0 Weight last 48 hrs Weight 104.78 kg Physical Exam 2 Narrative: Alert and oriented, walking around the room, heart regular rate and rhythm, lungs clear to auscultation bilaterally, abdomen is soft and nontender, fundus is firm, extremities have 1+ edema but no calf tenderness Urinary Catheter Management: Gregg Latex: Cath Placed During This Visit: yes Reason for Continuing Indwelling Catheter: Acute Urinary Retention or Obstruction Urinary Catheter Date of Insertion: 03/14/24 Urinary Catheter Time of Insertion: 17:05 Data 03/14/24 14:10 A&P Assessment and plan (1) Encounter for consultation for female sterilization: Patient is day #0-1 and desires to proceed with bilateral tubal ligation. One of the 2 OB OR's is down so we will be taking her to the main OR for this procedure. Attestations 2 Medical Necessity Statement*: care and routine surgery Coding Level of Care Code Acute Code for Chg Fwd Diagnoses Encounter for consultation for female sterilization Z30.09
[2024-03-15] MEDS: ceFAZolin 2,000 MG in sodium chloride 0.9% (plus) 50 ML 100 MG IV (08:48)
--- NOTE | 2024-03-15 08:54 | P.PN_ITS ---
Subjective 2 Subjective: She is doing well this morning and has no complaints. She is still 100% sure she wants to proceed with tubal ligation. She has been ambulating and tolerating a regular diet. Her bleeding has been about average. Vitals/I&O/Wt Last Vital Signs Temp 96.3 F L 03/14/24 18:43 Pulse 86 03/15/24 04:45 Resp 16 03/14/24 18:43 BP 119/79 03/15/24 04:45 Pulse Ox 100 03/14/24 17:07 O2 Del Method Room Air 03/14/24 14:00 03/14/24 03/15/24 03/15/24 22:59 06:59 14:59 Intake Total 2050.0 / 2050.0 Output Total 550 / 550 Balance 1500.0 / 1500.0 Weight last 48 hrs Weight 104.78 kg Physical Exam 2 Narrative: Alert and oriented, walking around the room, heart regular rate and rhythm, lungs clear to auscultation bilaterally, abdomen is soft and nontender, fundus is firm, extremities have 1+ edema but no calf tenderness Urinary Catheter Management: Gregg Latex: Cath Placed During This Visit: yes Reason for Continuing Indwelling Catheter: Acute Urinary Retention or Obstruction Urinary Catheter Date of Insertion: 03/14/24 Urinary Catheter Time of Insertion: 17:05 Data 03/15/24 23:20 A&P Assessment and plan (1) Encounter for consultation for female sterilization: She will be taken to the main OR shortly for bilateral tubal ligation (2) Normal spontaneous vaginal delivery: Routine care Attestations 2 Medical Necessity Statement*: Routine surgery and care Coding Level of Care Code Acute Code for Chg Fwd Diagnoses Encounter for consultation for female sterilization Z30.09 Normal spontaneous vaginal delivery O80
--- NOTE | 2024-03-15 09:00 | PC.NURSE ---
Pt to main OR via bed for tubal.
[2024-03-15] MEDS: BUPivacaine 0.5% INJ 10 mL INJECTION (09:17)
--- NOTE | 2024-03-15 09:39 | P.ANESASSM_ITS ---
Pre-Anesthetic Assessment Height/Weight: Height 1.57 m Weight 104.78 kg Temp Pulse Resp BP Pulse Ox O2 Del Method 98.2 F 74 16 114/72 99 Room Air 03/15/24 08:45 03/15/24 08:45 03/15/24 08:45 03/15/24 08:45 03/15/24 08:45 03/15/24 08:45 Operation Date: 03/15/24 09:10 Proposed Procedures p Post Bilateral Tubal Ligation(Not Applicable) - Bailey Dos Santos MD Familial anesthetic complications: none Was Beta Stephanie taken within 24 hours: N/A Was Clonidine taken within 24 hours: N/A Social No alcohol and No tobacco Exam alert, oriented x 3, clear to auscultation bilaterally and regular rate & rhythm Airway Submandibular: within normal limits Cervical ROM: within normal limits Mallampati: Class II Dentition: full Neuropsych Anxiety and Depression Anesthetic Plan ASA status: 2 Anesthesia: General (Mod RSI) Other: Medications/Allergies Home Medications Medication Instructions Recorded Confirmed Last Taken Type fluoxetine 20 mg capsule (Prozac) 20 mg PO DAILY 06/03/22 05/02/23 03/13/24 20:00 History vits no.124-ferrous fum 1 tab PO DAILY 03/14/24 03/14/24 03/13/24 20:00 History 27 mg iron-folic acid 800 mcg tablet ( Vitamin) Allergies Allergy/AdvReac Type Severity Reaction Status Date / Time No Known Allergies Allergy Verified 05/02/23 10:20 Current Medications Generic Name Dose Route Start Last Admin Trade Name Freq PRN Reason Stop Dose Admin Acetaminophen 650 mg 03/14/24 22:16 03/15/24 06:50 Acetaminophen 325 Mg Tablet PO 650 mg Q6H PRN Administration mild pain for temp >100.4. Benzocaine 1 spray 03/14/24 22:16 03/14/24 23:05 Benzocaine-Menthol 78 Gm Canister TOPICAL 1 spray PRN PRN Administration PAIN PFSH Anesthesia Family History Denies family history of Cervical cancer Colon cancer Ovarian cancer Diabetes Breast cancer Hypertension Uterine cancer Thyroid disease Stroke Social History Smoking and tobacco/nicotine status: former use of tobacco/nicotine Alcohol intake: never Substance/Drug Use: never Female Reproductive History : 2 Data Anesthesia 03/15/24 08:30 Short CBC 03/14/24 03/15/24 Range/Units 14:10 08:30 WBC 17.11 H 14.36 H (3.29-11.43) 10^3/uL Hgb 12.30 11.20 L (11.27-16.99) g/dL Hct 37.9 35.1 L (36-47) % MCV 85.2 87.8 (85-98) fl Plt Count 302 197 D (157-399) 10^3/cmm Neut % (Auto) 81.1 % Neut # (Auto) 13.88 H (1.8-7.7) 10^3/uL Blood Bank 03/14/24 14:10 Blood Type B Positive Rho(D) Type Rh positive Antibody Screen Negative Cardiac Studies: 2 No Data to Display
--- NOTE | 2024-03-15 09:41 | ANE.PACU2 ---
Inpatient post-anesthesia follow up: Airway intact: Yes Vital signs: Temperature 98.2 F Pulse Rate 74 Respiratory Rate 16 Blood Pressure 114/72 Pulse Oximetry 99 Oxygen Delivery Me thod Room Air Oxygen Flow Rate Fraction of Inspir ed Oxygen Hydration adequate: Yes Nausea and vomiting: No Pain level: 2 Mental status: Baseline Epidural Start/End: Epidural Start Date: 03/14/24 Epidural Start Time: 16:19 Epidural End Date: 03/14/24 Epidural End Time: 22:30
--- NOTE | 2024-03-15 10:05 | PM.OP ---
Operative Report Date of procedure: March 15, 2024 Procedure done: bilateral tubal ligation Pathology: Segments of right and left fallopian tube Surgeon: Bailey Dos Santos MD Estimated blood loss (mL): 2 IV fluids (mL): 800 Complications: None Procedure: After informed consent the patient was taken to the OR where general anesthesia was administered. She was prepped and draped in normal sterile fashion in dorsal supine position. A curvilinear infraumbilical incision was made with a 10 blade and then carried through to the underlying layer of fascia bluntly using a hemostat. The fascia was grasped with Allis clamps and entered sharply using the Metzenbaums. The peritoneum was then entered bluntly. The left fallopian tube was grasped with a Rhett and brought into the operative field. A distal portion of the tube was ligated and excised. Tubal ostia were visualized. Segment of tube was sent to pathology. The cut portions of the tube were coagulated for hemostasis and then returned to the abdomen. The right fallopian tube was then grasped with a Rhett and brought into the operative field. A distal portion of the tube was ligated and excised. Tubal ostia were visualized. Segment of the tube was sent to pathology. The cut portions of the tube were coagulated using the Bovie and then returned to the abdomen. The peritoneum and fascia was then reapproximated using 0 Vicryl in a running fashion. The skin was then reapproximated using 4-0 Vicryl in a running fashion. An mL of bupivacaine was injected circumferentially around the incision site. Steri-Strips and a pressure bandage were applied patient was awakened and went to recovery in good condition
--- NOTE | 2024-03-15 10:26 | PC.NURSE ---
Pt back to room from OR via bed. Call light discussed. Pt instructed not to get up out of bed without assistance first time.
--- NOTE | 2024-03-15 10:35 | ANE.PACU2 ---
Inpatient post-anesthesia follow up: Airway intact: Yes Vital signs: Temperature 97.7 F Pulse Rate 68 Respiratory Rate 15 Blood Pressure 131/86 Pulse Oximetry 96 Oxygen Delivery Me thod Room Air Oxygen Flow Rate Fraction of Inspir ed Oxygen Hydration adequate: Yes Nausea and vomiting: No Pain level: 2 Mental status: Baseline
[2024-03-15] MEDS: HYDROcodone-acetaminophen 5-325 mg Tablet PO ×2 (10:57→17:23)
[2024-03-15] MEDS: ibuprofen 800 mg tablet PO ×2 (15:05→22:50)
[2024-03-15] MEDS: docusate sodium 100 mg Capsule PO (17:23)
[2024-03-15] MEDS: lanolin oint 7 gm 1 APPLIC TOPICAL (22:54)
[2024-03-16 00:17] LABS: Hematocrit 30.5 % (36-47); Mean Corpuscular HGB Conc 32.1 g/dL (30-55); Mean Corpuscular Hemoglobin 28.1 pg (27-33); Mean Corpuscular Volume 87.4 fl (85-98); Mean Platelet Volume 11.1 fL (7.4-10.4); Platelet Count 217 10^3/cmm (157-399); Red Blood Count 3.49 10^6/uL (3.85-5.65); Red Cell Distribution Width 13.4 % (12.1-15.1); White Blood Count 15.29 10^3/uL (3.29-11.43)
[2024-03-16 04:30] VITALS: BP 123/80; PULSE 65; RESP 16; TEMP 36.8; O2SAT 98
[2024-03-16] MEDS: HYDROcodone-acetaminophen 5-325 mg Tablet PO (06:11)
[2024-03-16] MEDS: docusate sodium 100 mg Capsule PO (09:11)
[2024-03-16] MEDS: PRENATAL VIT NO.130/IRON/FOLIC 1 EACH TABLET PO (09:11)
[2024-03-16] MEDS: ibuprofen 800 mg tablet PO (09:11)
[2024-03-16 09:16] VITALS: BP 128/82; PULSE 83; RESP 16; TEMP 36.7; O2SAT 100
--- NOTE | 2024-03-16 12:35 | PM.DCS ---
Discharge Providers Date of Admission: 03/14/24 14:03 Date of Discharge: March 16, 2024 Attending Provider at Admission: Bailey Dos Santos MD Attending Provider at Discharge: Bailey Dos Santos MD Primary Care Provider: Tanner Ball MD Diagnoses at Discharge Discharge Diagnosis (1) Encounter for consultation for female sterilization: Status: Acute (2) Normal spontaneous vaginal delivery: Status: Resolved Reason for Visit Reason for Visit: CTX Hospital Course Hospital Course This is a 28-year-old G2 now P2 who was admitted in active labor and had a normal spontaneous vaginal delivery of a viable female . On day #1 she underwent a bilateral tubal ligation. She has some expected abdominal pain with movements. She has decreased vaginal bleeding Physical Exam Narrative: Alert and oriented, resting in bed, heart regular rate and rhythm, lungs clear to auscultation bilaterally, abdomen is soft with appropriate postoperative tenderness, incision is clean dry and intact. Extremities have 1+ edema but no calf tenderness Urinary Catheter Management: Gregg Latex: Cath Placed During This Visit: yes Reason for Continuing Indwelling Catheter: Acute Urinary Retention or Obstruction Urinary Catheter Date of Insertion: 03/14/24 Urinary Catheter Time of Insertion: 17:05 Discharge Data Studies Completed and Pending Pending at discharge Category Date Time Status Pathology: Surgical [PTH] Routine Pth 03/15/24 09:50 Received Laboratory Results WBC 15.29 10^3/uL (3.29-11.43) H 03/15/24 23:20 RBC 3.49 10^6/uL (3.85-5.65) L 03/15/24 23:20 Hgb 9.80 g/dL (11.27-16.99) L 03/15/24 23:20 Hct 30.5 % (36-47) L 03/15/24 23:20 MCV 87.4 fl (85-98) 03/15/24 23:20 MCH 28.1 pg (27-33) 03/15/24 23:20 MCHC 32.1 g/dL (30-55) 03/15/24 23:20 RDW 13.4 % (12.1-15.1) 03/15/24 23:20 Plt Count 217 10^3/cmm (157-399) 03/15/24 23:20 MPV 11.1 fL (7.4-10.4) H 03/15/24 23:20 Neut % (Auto) 81.1 % 03/14/24 14:10 Lymph % (Auto) 11.1 % 03/14/24 14:10 Sunflower % (Auto) 5.4 % 03/14/24 14:10 Eos % (Auto) 1.2 % 03/14/24 14:10 Baso % (Auto) 0.3 % 03/14/24 14:10 Neut # (Auto) 13.88 10^3/uL (1.8-7.7) H 03/14/24 14:10 Lymph # (Auto) 1.9 10^3/uL (0.8-4.8) 03/14/24 14:10 Sunflower # (Auto) 0.9 10^3/uL (0.2-0.9) 03/14/24 14:10 Eos # (Auto) 0.2 10^3/uL (0.0-0.8) 03/14/24 14:10 Baso # (Auto) 0.1 10^3/uL (0.0-0.1) 03/14/24 14:10 Nucleated RBC % (auto) 0 % 03/14/24 14:10 Nucleated RBCs # 0.0 /100WBC 03/14/24 14:10 Urine Opiates Screen Negative ng/mL (Negative) 03/14/24 14:00 Ur Barbiturates Screen Negative ng/mL (Negative) 03/14/24 14:00 Ur Phencyclidine Scrn Negative ng/mL (Negative) 03/14/24 14:00 Ur Amphetamines Screen Negative ng/mL (Negative) 03/14/24 14:00 U Benzodiazepines Scrn Negative ng/mL (Negative) 03/14/24 14:00 Urine Cocaine Screen Negative ng/mL (Negative) 03/14/24 14:00 U Marijuana (THC) Screen Negative ng/mL (Negative) 03/14/24 14:00 Blood Type B Positive 03/14/24 14:10 Rho(D) Type Rh positive 03/14/24 14:10 Antibody Screen Negative 03/14/24 14:10 Vitals Last Vital Signs Temp 98.0 F 03/16/24 09:16 Pulse 83 03/16/24 09:16 Resp 16 03/16/24 09:16 BP 128/82 03/16/24 09:16 Pulse Ox 100 03/16/24 09:16 O2 Del Method Room Air 03/16/24 09:16 Discharge Plan Discharge Patient Disposition: Home Condition: Stable Prescriptions: New ibuprofen 800 mg Tablet 800 mg PO TID PRN (Reason: Abdominal Discomfort) Qty: 30 0RF Continued fluoxetine [Prozac] 20 mg capsule 20 mg PO DAILY Vitamin 27 mg iron- 800 mcg Tablet 1 tab PO DAILY Discharge Orders: Discharge Order (Routine); Ordered 03/16/24 Ordered By: Bailey Dos Santos Referrals: Bailey Dos Santos MD [Physician] - 4-7 days () Discharge Diet: Usual diet Discharge Activity: Limit activity as instructed Patient Instructions: Depression (DC), Opioid Safety (DC), Preeclampsia and Eclampsia After Delivery (GEN), Tubal Ligation (DC), Hemorrhage (DC), OB Discharge Report, OB Food/Drug Interaction Guide, OB Care at Home, Opioid Safety, OB Vaginal Deliveries, Abnormal Bleeding Activity Restrictions/Additional Instructions: No lifting greater than 10 pounds for 2 weeks Discharge Attestations Time Spent in Discharge Care*: less than 30 min Status at Discharge: Cognitive status at discharge: cognitively intact, Behavioral status at discharge: cooperative, Quality Metrics Clinical Quality Measures [ No reported AMI, CVA or VTE this stay] Coding Level of Care Code Acute Code for Chg Fwd Diagnoses Encounter for consultation for female sterilization Z30.09 Normal spontaneous vaginal delivery O80
[2024-03-16 13:27] VITALS: BP 147/91; PULSE 68; RESP 17; TEMP 36.8; O2SAT 100
[2024-03-16 13:50] VITALS: BP 147/91; PULSE 68; RESP 17; TEMP 36.8; O2SAT 100
== END 2024-03-16 13:50 | disposition home or self-care (01) | DRG 798 ==
LOC: OPOB 14:04 → OBGYN 14:04
PROVIDERS: Admitting Provider Family Medicine; PCP Family Medicine; Visit Provider Family Medicine
PROC: 0UB70ZZ Excision of Bilateral Fallopian Tubes, Open Approach (ICD-10-PCS; CPT 58605; 2024-03-15 09:00)
DX: O99.824 Streptococcus B carrier state complicating childbirth (principal); Z37.0 Single live birth; Z3A.38 38 weeks gestation of pregnancy; Z30.2 Encounter for sterilization; O70.1 Second degree perineal laceration during delivery
CPT/HCPCS: 36415; 51702; 59025; 59409; 80306; 85025; 85027; 86850; 86900; 88302; 96374; 96376; 98960; J0290; J0330; J0690; J1100; J2405; J2590; J2704; J2710; J2765; J2795; J3010; J3490; J7120; J7121

== ENCOUNTER 2024-03-22 18:07 | Emergency (ER) | payer MEDICAID, SELFPAY ==
[2024-03-22 18:22] VITALS: BP 142/87; PULSE 93; RESP 17; TEMP 37.6; O2SAT 95; BMI 38.7
--- NOTE | 2024-03-22 19:34 | ED_ITS ---
HPI - Female Genitourinary General: Chief complaint: Urogenital-Female Stated complaint: vaginal bleeding,stiches coming out Time Seen by Provider: 03/22/24 19:25 History of Present Illness: 28-year-old female who presents the [facility] room with vaginal pain. She had a vaginal delivery about 8 days ago. She is been having some pain and had used a camera to look at her vagina and was concerned that some stitches may have broken. She continues to have some mild vaginal bleeding. No abdominal pain. No fevers. Review of Systems Narrative: Constitutional symptoms: Negative except as documented in HPI. Skin symptoms: Negative except as documented in HPI. Eye symptoms: Negative except as documented in HPI. ENMT symptoms: Negative except as documented in HPI. Respiratory symptoms: Negative except as documented in HPI. Cardiovascular symptoms: Negative except as documented in HPI. Gastrointestinal symptoms: Negative except as documented in HPI. Genitourinary symptoms: Negative except as documented in HPI. Musculoskeletal symptoms: Negative except as documented in HPI. Neurologic symptoms: Negative except as documented in HPI. Psychiatric symptoms: Negative except as documented in HPI. Endocrine symptoms: Negative except as documented in HPI. PFSH ED PFSH: Family History Denies family history of Cervical cancer Colon cancer Ovarian cancer Diabetes Breast cancer Hypertension Uterine cancer Thyroid disease Stroke Social History Smoking and tobacco/nicotine status: former use of tobacco/nicotine Alcohol intake: never Substance/Drug Use: never Physical Exam Narrative: EXAM NARRATIVE: General: Alert, no acute distress. Skin: warm and dry Head: Normocephalic Neck: Trachea midline Eye: Extraocular movements are intact. Ears, nose, mouth and throat: Oral mucosa moist Respiratory: Respirations are non-labored Musculoskeletal: Normal ROM Genitourinary: Appears normal. Top right labia minora has a small defect in does appear that a stitch could have come out. Difficult to say. Does not appear overtly abnormal. Neurological: Alert and oriented, No focal neurological deficit observed. Psychiatric: Cooperative, appropriate mood & affect. Course Vital Signs: Vital signs: Vital Signs Temperature 99.6 F 03/22/24 18:22 Pulse Rate 93 03/22/24 18:22 Respiratory Rate 17 03/22/24 18:22 Blood Pressure 142/87 03/22/24 18:22 Pulse Oximetry 95 03/22/24 18:22 Oxygen Delivery Me thod Room Air 03/22/24 18:22 MDM - Female Medical Decision Making Assessment and plan: Episiotomy pain - Discharged home - Discussed plan with patient. Answered any questions. - Evaluation and treatment of this problem were appropriate in the emergency setting. No radiology studies performed this visit Discharge Plan Discharge Patient Disposition: Home Clinical Impression: Episiotomy pain Condition: Stable Prescriptions: No Action fluoxetine [Prozac] 20 mg capsule 20 mg PO DAILY ibuprofen 800 mg Tablet 800 mg PO TID PRN (Reason: Abdominal Discomfort) Qty: 30 0RF Vitamin 27 mg iron- 800 mcg Tablet 1 tab PO DAILY Discharge Orders: Discharge ED (Routine); Ordered 03/22/24 Ordered By: Nanette Parsons Referrals: Tanner Ball MD [Primary Care Provider] - 1-3 days Discharge Diet: Usual diet Discharge Activity: Increase activity as tolerated Patient Instructions: Episiotomy (DC), Sitz Bath (DC) Activity Restrictions/Additional Instructions: Please follow-up with head of advertising soon as possible. Thank you for choosing [facility] for your healthcare needs today. Please realize this is an emergency room and that we are providing you with a medical screening exam and this may not be complete and all inclusive of all the testing and or work up that you may need to determine your ailment or severity of your illness. You have been screened and evaluated and felt safe for discharge. Health conditions do change or evolve sometimes and as such it is important that you follow up with your Primary Doctor to be re checked, 3-5 days is a general good time frame for follow up. You are always welcome to return to the ED for re assessment if your symptoms are worsening or you have new concerns Coding Level of Care Code ED Manager Combination for Tre Montemayor
[2024-03-22] MEDS: HYDROcodone-acetaminophen 10-325 mg Tablet 1 TAB PO (19:43)
[2024-03-22 20:09] VITALS: BP 142/87; PULSE 93; RESP 17; TEMP 37.6; O2SAT 95
== END 2024-03-22 19:38 | disposition home or self-care (01) ==
PROVIDERS: Emergency Provider Emergency Medicine; PCP Family Medicine
DX: O90.89 Other complications of the puerperium, not elsewhere classified (principal); G89.18 Other acute postprocedural pain; Z87.891 Personal history of nicotine dependence
CPT/HCPCS: 99283

== ENCOUNTER 2024-07-18 19:20 | Emergency (ER) | payer MEDICAID, SELFPAY ==
[2024-07-18 19:42] VITALS: BP 127/83; PULSE 85; RESP 17; TEMP 36.9; O2SAT 96; BMI 39.6
== END 2024-07-18 22:06 | disposition left against medical advice (07) ==
PROVIDERS: Emergency Provider Family Medicine; PCP Family Medicine
DX: Z53.21 Procedure and treatment not carried out due to patient leaving prior to being seen by health care provider (principal)

== ENCOUNTER 2024-07-22 13:39 | Emergency (ER) | payer MEDICAID, SELFPAY ==
[2024-07-22 13:47] VITALS: BP 132/85; PULSE 74; RESP 16; TEMP 36.3; O2SAT 100; BMI 38.9
--- NOTE | 2024-07-22 14:05 | W.ED.EXTPRO ---
HPI - Extremity Problem General: Chief complaint: Extremity Injury, Lower Stated complaint: rt knee inj Time Seen by Provider: 07/22/24 13:45 Source: patient Mode of arrival: ambulatory Limitations: no limitations History of Present Illness: Patient is a 29-year-old female presents the emergency department complaining of right knee pain over the past few days. Initially she tried to come to the ER on Saturday but states that the wait was too long so she went home. She was subsequently seen at urgent care the next day where she had an x-ray of the right knee that was normal. Her story is that she had an initial injury where she tripped and fell causing a twisting injury where she heard a pop. She states she also reinjured it yesterday, and states that she wants an MRI done here in the emergency department. She is still able to bear weight, though with pain. She notes that the pain is worse with extension, and the pain is diffuse to the right knee joint. No bruising, swelling, or other symptoms to report. She has been wearing a brace for support. MD Complaint: joint pain Onset (ago): day(s) Pain Consistency: constant Location: right and knee Radiation: none Exacerbating factors: range of motion and weight bearing Associated symptoms: Deny chest pain, fever(s) or rash Related Data Home Medications Medication Instructions Recorded Confirmed fluoxetine 20 mg capsule (Prozac) 20 mg PO DAILY 06/03/22 03/16/24 vits no.124-ferrous fum 1 tab PO DAILY 03/14/24 03/16/24 27 mg iron-folic acid 800 mcg tablet ( Vitamin) Previous Rx's Medication Instructions Recorded ibuprofen 800 mg tablet 800 mg PO TID PRN Abdominal 03/16/24 Discomfort #30 tabs Allergies Allergy/AdvReac Type Severity Reaction Status Date / Time No Known Allergies Allergy Verified 07/18/24 19:45 Review of Systems General: Reports: 10 or more systems reviewed and unremarkable except in HPI and below Const: Denies: fever(s) or chills Card: Denies: chest pain Resp: Denies: dyspnea or productive cough GI: Denies: abdominal pain, nausea, vomiting or diarrhea : Denies: flank pain Musc: Reports: joint pain (Right knee) and limited range of motion; Denies: neck pain, back pain, extremity pain, extremity swelling, joint swelling, joint redness, joint warmth or muscle weakness Skin/Breast: Denies: rash Neuro: Denies: headache(s), numbness in extremities or weakness in extremities PFSH ED PFSH: Family History Denies family history of Cervical cancer Colon cancer Ovarian cancer Diabetes Breast cancer Hypertension Uterine cancer Thyroid disease Stroke Social History Smoking and tobacco/nicotine status: former use of tobacco/nicotine Alcohol intake: never Substance/Drug Use: never Physical Exam Const: COMMON NORMALS: no acute distress, patient oriented x3, no limitations, healthy appearing, alert and well nourished HENMT: COMMON NORMALS: normocephalic and atraumatic HEAD & SCALP: normocephalic and atraumatic Neck/C-Spine: COMMON NORMALS: full ROM, supple and no meningeal signs Resp: COMMON NORMALS: normal respiratory effort and No use of accessory muscles Extremity: COMMON NORMALS: normal to inspection, full ROM, capillary refill normal, no joint enlargement and no clubbing, cyanosis or edema NARRATIVE EXTREMITY EXAM: No knee joint swelling, no significant reproducible tenderness to palpation. Pain with passive range motion at the knee, worse with extension. No appreciable joint effusion. No joint laxity. No calf tenderness. Neuro: COMMON NORMALS: patient oriented x3, moves all extremities, no focal motor deficits and no sensory deficits noted SENSORIUM/ORIENTATION: Yes alert MENINGEAL SIGNS: Yes no meningeal signs Skin: COMMON NORMALS: no rashes or lesions noted GENERAL SKIN EXAM: no rashes or lesions noted Course Vital Signs: Vital signs: Vital Signs Temperature 97.3 F L 07/22/24 13:47 Pulse Rate 74 07/22/24 13:47 Respiratory Rate 16 07/22/24 13:47 Blood Pressure 132/85 07/22/24 13:47 Pulse Oximetry 100 07/22/24 13:47 Oxygen Delivery Me thod Room Air 07/22/24 13:47 MDM - Extremity (Nontraumatic) Medical Decision Making Patient had x-ray done of her right knee 2 days ago, this was negative. She has had 2 injuries of her right knee, states that she came here today to obtain an MRI. I did discuss with her that this is not ordered from the emergency department and she needs to have this through primary care. She states she did not want to wait for 3 weeks, so I will refer her to orthopedics and attempt to expedite this. Otherwise I did discuss with her that she needs to do conservative treatments such as ice, Tylenol and ibuprofen, and range of motion exercises in the meantime. She is still ambulatory just is reporting pain. She also has been wearing a compression device. We will give her a work note to delegate strenuous activities, and she will be referred as mentioned. She agrees with plan and denies new x-ray here today. No radiology studies performed this visit Discharge Plan Discharge Patient Disposition: Home Clinical Impression: Right knee sprain Qualifiers: Encounter type: subsequent encounter Involved ligament of knee: unspecified ligament Qualified Code(s): S83.91XD - Sprain of unspecified site of right knee, subsequent encounter Condition: Stable Prescriptions: No Action fluoxetine [Prozac] 20 mg capsule 20 mg PO DAILY ibuprofen 800 mg Tablet 800 mg PO TID PRN (Reason: Abdominal Discomfort) Qty: 30 0RF Vitamin 27 mg iron- 800 mcg Tablet 1 tab PO DAILY Discharge Orders: Discharge ED (Routine); Ordered 07/22/24 Ordered By: Ben Farnsworth Referrals: Tanner Ball MD [Primary Care Provider] - Discharge Activity: Increase activity as tolerated Patient Instructions: Knee Sprain (ED) Activity Restrictions/Additional Instructions: Follow-up with primary care or orthopedics as discussed if your pain persists, to potentially obtain an MRI. No x-ray done today due to prior imaging yesterday. Continue using ice and doing gentle range of motion exercises of the knee as tolerated. Alternate Tylenol and ibuprofen. Weightbearing as tolerated and return with any new or worsening pain. Work note provided. Stand Alone Forms: Work/School Release Coding Level of Care Code ED Occupational Therapy Aides Teacher for Tre Montemayor
[2024-07-22 14:33] VITALS: BP 131/80; PULSE 74; O2SAT 98
--- NOTE | 2024-07-23 07:36 | DCPLANNER ---
messaged ortho for er f/u
== END 2024-07-22 14:35 | disposition home or self-care (01) ==
PROVIDERS: Emergency Provider Physician Assistant; PCP Family Medicine
DX: S83.91XA Sprain of unspecified site of right knee, initial encounter (principal); W01.0XXA Fall on same level from slipping, tripping and stumbling without subsequent striking against object, initial encounter; Z87.891 Personal history of nicotine dependence
CPT/HCPCS: 99282

== ENCOUNTER 2024-09-02 13:00 | Outpatient (CLI) | payer MEDICAID, SELFPAY ==
--- NOTE | 2024-09-02 13:07 | MR_ITS ---
WS: [id number] MRI RIGHT KNEE NONCONTRAST TECHNIQUE: Axial PD, sagittal PD, and sagittal PD fat-sat images obtained. Coronal imaging does not a ppear to have been performed. Patient can return for coronal imaging at a later date if indicated CLINICAL INFORMATION: R KNEE PAIN COMPARISON: None. FINDINGS: Moderate suprapatellar effusion. 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 Small amount of subchondral edema. Shallow appearing trochlear gr oove. Recommend correlation for patellar instability. No significant edema in the lateral femoral con dyle to indicate recent dislocation with contusion. Laxity with suspected chronic partial tear of the medial patellar retinaculum. ACL and PCL appear intact. Medial and lateral collateral ligaments appear intact. Head of the fibula appears normal. No acute appearing meniscal tears. No edema in the tibial plateau. MR/MR knee RT wo con* [id number] IMPRESSION: 1. ACL and PCL appear intact. 2. 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 Shallow trochlear groove suspicious for patellar instability. 3. Laxity with suspected chronic partial tearing of the medial patellar retina culum. 4. Moderate suprapatellar effusion. 5. Chronic thinning of the medial and lateral meniscus appear intact. 6. Medial and lateral collateral ligaments appear intact. Outbridge grading: grade III: partial-thickness cartilage loss with focal ulcer ation
== END 2024-09-02 13:01 | disposition home or self-care (01) ==
LOC: RAD 13:00
PROVIDERS: PCP Family Medicine; Visit Provider Family Medicine
DX: M94.261 Chondromalacia, right knee (principal); M25.461 Effusion, right knee; M23.203 Derangement of unspecified medial meniscus due to old tear or injury, right knee; M23.200 Derangement of unspecified lateral meniscus due to old tear or injury, right knee
CPT/HCPCS: 73721

== ENCOUNTER → 2024-09-23 14:50 | Outpatient (BNVA) | payer MEDICAID, SELFPAY | PROVIDERS: PCP Family Medicine; Visit Provider Nurse Practitioner | DX: M25.361 Other instability, right knee; M22.41 Chondromalacia patellae, right knee; S86.811A Strain of other muscle(s) and tendon(s) at lower leg level, right leg, initial encounter; W01.0XXA Fall on same level from slipping, tripping and stumbling without subsequent striking against object, initial encounter | CPT/HCPCS: 73560; 73565 ==

== ENCOUNTER 2024-12-09 15:53 | Outpatient (CLI) | payer MEDICAID, SELFPAY ==
[2024-12-09 16:23] LABS: Basophils # 0.1 10^3/uL (0.0-0.1); Basophils % 0.5 %; Eosinophils # 0.3 10^3/uL (0.0-0.8); Eosinophils % 2.6 %; Hematocrit 44.3 % (36-47); Lymphocytes # 3.4 10^3/uL (0.8-4.8); Lymphocytes % 28.2 %; Mean Corpuscular HGB Conc 33.9 g/dL (30-55); Mean Corpuscular Volume 88.6 fl (85-98); Mean Platelet Volume 9.7 fL (7.4-10.4); Monocytes # 0.6 10^3/uL (0.2-0.9); Monocytes % 4.7 %; Neutrophils % 63.8 %; Nucleated Red Blood Cells % 0 %; Platelet Count 377 10^3/cmm (157-399); Red Cell Distribution Width 12.7 % (12.1-15.1); White Blood Count 12.09 10^3/uL (3.29-11.43)
[2024-12-09 18:02] LABS: Alanine Aminotransferase 25 U/L (0-33); Albumin Level 4.7 g/dL (3.5-5.2); Alkaline Phosphatase 92 U/L (35-105); Anion Gap 20.1 (5-19); Aspartate Amino Transferase 20 U/L (0-32); Blood Urea Nitrogen 12 mg/dL (6-20); Calcium 9.5 mg/dL (8.5-10.5); Carbon Dioxide 20 mmol/L (22-29); Chloride 103 mmol/L (98-107); Globulin 2.8 g/dL (1.3-4.6); Glomerular Filtration Rate 98.3 mL/min (90-130); Glucose 89 mg/dL (65-115); Osmolality Calculated 287 mOsm/kg (285-295); Potassium 4.1 mmol/L (3.5-5.1); Sodium 139 mmol/L (136-145); Total Bilirubin 0.3 mg/dL (0.15-1.2); Total Protein 7.5 g/dL (6.6-8.7)
== END 2024-12-09 15:54 | disposition home or self-care (01) ==
PROVIDERS: PCP Family Medicine; Visit Provider Nurse Practitioner
DX: Z01.818 Encounter for other preprocedural examination (principal)
CPT/HCPCS: 36415; 80053; 85025

== ENCOUNTER → 2024-12-12 12:16 | Outpatient (BNVA) | payer MEDICAID, SELFPAY | PROVIDERS: PCP Family Medicine; Visit Provider Family Medicine | DX: J40 Bronchitis, not specified as acute or chronic (principal) | CPT/HCPCS: 87400 ==

== ENCOUNTER 2024-12-15 10:42 | Outpatient (CLI) | payer MEDICAID, SELFPAY ==
[2024-12-15 11:10] LABS: Bilirubin Urine Negative (Negative); Blood Urine Negative (Negative); Glucose Urine UA Negative (Normal); Ketones Urine Negative (Negative); Leukocyte Esterase Urine Negative (Negative); Nitrate Urine Negative (Negative); Protein Urine Negative (Negative); Specific Gravity, Urine 1.013 (1.005-1.030); Urine Appearance Clear (CLEAR); Urine Color Yellow (Yellow); Urobilinogen Urine 0.2 mg/dL (Negative); pH Urine 5.5 (5-7)
[2024-12-15 11:13] LABS: Add Urine Microscopic? YES; Bacteria Urine None Seen /hpf; Hyaline Casts Urine 0-4 /lpf; RBC Urine 0-2 /hpf (0-2); Squamous Epithelial Cell Urine 0-5 /hpf (0-5); WBC Urine 0-5 /hpf (0-5)
== END 2024-12-15 10:43 | disposition home or self-care (01) ==
LOC: LAB 10:44
PROVIDERS: PCP Family Medicine; Visit Provider Nurse Practitioner
DX: Z01.818 Encounter for other preprocedural examination (principal)
CPT/HCPCS: 81001

== ENCOUNTER 2024-12-17 05:54 | Day surgery (SDC) | payer MEDICAID, SELFPAY ==
[2024-12-17] VITALS (13 sets, daily range): BP systolic 119–135; BP diastolic 74–89; PULSE 65–86; RESP 16–18; TEMP 36.2–36.5; O2SAT 94–99; BMI 38.9
[2024-12-17 06:14] LABS: OR HCG Qualitative Urine Negative (Negative)
[2024-12-17] MEDS: acetaminophen 1,000 MG/100 ML PIGGYBACK 400 MG IV (06:40)
--- NOTE | 2024-12-17 06:41 | ANES.PREANE2 ---
Pre-Anesthetic Assessment Height/Weight: Height 1.57 m Weight 96.615 kg Temp Pulse Resp BP Pulse Ox O2 Del Method 97.7 F 82 18 122/74 99 Room Air 12/17/24 06:19 12/17/24 06:19 12/17/24 06:19 12/17/24 06:19 12/17/24 06:19 12/17/24 06:24 Operation Date: 12/17/24 07:00 Proposed Procedures p Knee Arthroscopy Knee Arthroscopy w/ Debridement(Right) - Paula Escobedo MD s Chondroplasty of patella(Right) - Paula Escobedo MD Familial anesthetic complications: None Was Beta Stephanie taken within 24 hours: N/A Was Clonidine taken within 24 hours: N/A Last intake: Intake Last Liquid Date 12/16/24 Last Liquid Time 11:58 Last Solid Date 12/16/24 Last Solid Time 20:00 Social Tobacco and No alcohol Exam alert, oriented x 3, clear to auscultation bilaterally and regular rate & rhythm Airway Mallampati: Class I Dentition: full Anesthetic Plan ASA status: 1 Anesthesia: General Risk of > 500 ml blood loss (7ml/kg in children): No Medications/Allergies Home Medications ?Medication ?Instructions ?Recorded ?Confirmed ?Last Taken ?Type ibuprofen 800 mg tablet 800 mg PO TID PRN Abdominal 03/16/24 12/16/24 Unknown Rx Discomfort #30 tabs lisdexamfetamine 10 mg capsule 10 mg PO DAILY 09/23/24 12/16/24 12/15/24 History ([place]) meloxicam 7.5 mg tablet 7.5 mg PO DAILY #90 tabs 09/23/24 12/16/24 Unknown Rx right hinged knee brace #1 ea 10/27/24 12/12/24 Unknown Rx Allergies Allergy/AdvReac Type Severity Reaction Status Date / Time No Known Allergies Allergy Verified 12/12/24 11:54 [facility] Anesthesia Family History Denies family history of Cervical cancer Colon cancer Ovarian cancer Diabetes Breast cancer Hypertension Uterine cancer Thyroid disease Stroke Social History Smoking and tobacco/nicotine status: current some day tobacco/nicotine user Alcohol intake: never Substance/Drug Use: never Data Anesthesia Cardiac Studies: No Data to Display
[2024-12-17] MEDS: sodium chloride 0.9% 1,000 ML 30 ML IV (06:42)
[2024-12-17] MEDS: gabapentin 300 mg Capsule PO (06:44)
[2024-12-17] MEDS: CELEcoxib 200 mg Capsule 400 MG PO (06:45)
--- NOTE | 2024-12-17 07:01 | W.PM.OPSUD ---
Surgery/Procedure H&P Update DATE OF PROCEDURE: December 17, 2024 DATE H&P PERFORMED: 12/16/24 H&P UPDATE INFORMATION: I have reviewed H&P completed within last 30 days, I have examined patient prior to procedure, No changes to prior documentation and H&P is in [facility] [place] on date indicated CHANGES TO PREVIOUS DOCUMENTATION: MRI RIGHT KNEE NONCONTRAST on09/02/24 IMPRESSION: 1. ACL and PCL appear intact. 2. 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 Shallow trochlear groove suspicious for patellar instability. 3. Laxity with suspected chronic partial tearing of the medial patellar retinaculum. 4. Moderate suprapatellar effusion. 5. Chronic thinning of the medial and lateral meniscus appear intact. 6. Medial and lateral collateral ligaments appear intact. Outbridge grading: grade III: partial-thickness cartilage loss with focal ulceration PLANNED PROCEDURE: Operation Date: 12/17/24 07:00 Proposed Procedures p Knee Arthroscopy Knee Arthroscopy w/ Debridement(Right) - Paula Escobedo MD s Chondroplasty of patella(Right) - Paula Escobedo MD Related Problem List Diagnoses (1) Chondromalacia patellae of right knee:
[2024-12-17] MEDS: ceFAZolin 2,000 mg SDV 2000 MG IVP (07:03)
[2024-12-17] MEDS: ROPivacaine 0.5% SDV 30 mL 150 MG INJECTION (08:22)
[2024-12-17] MEDS: morphine 4 mg/mL SDV 1 mL 8 MG XX (08:22)
--- NOTE | 2024-12-17 08:41 | P.OP_ITS ---
Operative Report Date of procedure: December 17, 2024 Pre-op diagnosis: Right knee chondromalacia patella Post-op diagnosis: Right knee chondromalacia patella with evidence of prior dislocation and indentation in the medial aspect of the patella as well as irregularity to the inner rim of the lateral meniscus Post-op findings: See postop diagnosis Procedure done: Right arthroscopic knee surgery with chondroplasty of the patella and lateral tibial plateau and partial lateral meniscectomy Implants: None Specimens removed/disposition: None Pathology: None Surgeon: Paula Escobedo MD Pipelines Manager: None Anesthesia: General (Per LMA, ASA 1) Estimated blood loss (mL): 5 Tourniquet time (min): 51 (20 close elevated for 26 minutes subsequently deflated and reinflated for an additional 25) IV fluids (mL): 750 Urine output (mL): 0 (No Gregg) Complications: None Findings: See postoperative findings Condition: stable Disposition: PACU (Then return to same-day surgery for discharge to home) Brief History: This 29-year-old woman presented today with complaints of right knee pain her pain was 7 of 10 when she was seen in the clinic. The patient had conservative therapies including anti-inflammatories, knee bracing, and home physical therapy program for range of motion and strengthening. She had some benefit from the medications but was not able to commit to her exercise program. After discussion, the patient wished to proceed with surgical debridement. MRI demonstrated advanced chondromalacia with fissuring of the patient's medial patella and a shallow trochlear groove consistent with possible patellar instability. Therefore, the patient was consented for surgery. Risks and complications were discussed with her. Consents were signed and questions were answered. Procedure: Patient was brought to the operating theater and after undergoing general anesthesia per LMA which was well-tolerated, ASA 1, the patient's right lower extremity was prepped and draped in usual fashion utilizing DuraPrep. A tourniquet was placed high on the leg prior to prepping and draping. The tourniquet was elevated prior to commencement of the surgical procedure to 250 mmHg. initially, the tourniquet was elevated to 250 mm for total tourniquet time of 26 minutes, but it was then released as other equipment was obtained. The tourniquet was reelevated for an additional 25 minutes at 250 mmHg. Elevation followed prepping and exsanguination. Prior to commencement of the surgical procedure, a surgical pause was performed. At the time of the surgical pause, we identified the site and side of surgery. We also confirm the patient's identity and appropriate and timely administration of preoperative antibiotics. Preoperative surgical markings were also visualized at this time. Standard arthroscopic portals were utilized including superolateral, inferomedial, and inferolateral portals. The examination commenced in the suprapatellar pouch area where the patient was noted to have chondromalacia of the significant degree on the undersurface of the patella. The arthroscope was then passed in the medial compartment where there was noted to be an intact medial meniscus. There was some synovitis around the anterior cruciate ligament, and this was debrided. Hemostasis was obtained. The arthroscope was then passed across the notch area where anterior cruciate ligament was visualized and found to be intact. The scope was passed into the lateral compartment with the knee in a [id number] position. Lateral meniscus was noted to have inner rim tearing as well as chondromalacia over the lateral tibial plateau. This was addressed with the intra-articular heat wand along the inner rim of the lateral meniscus. Chondromalacia of the lateral tibial plateau was also addressed with the intra-articular heat wand. Once lateral meniscus had been thus prepared it was palpated and found to be intact and not displaceable into the knee joint. Scope was then returned to the medial compartment where the meniscus was palpated and found to be not displaceable into the knee joint. The arthroscope was then returned to the patellofemoral joint where a chondroplasty was performed of the undersurface of the patella. This chondroplasty involved use of the intra-articular shaver as well as the heat wand. Once the patella had been addressed, the scope was passed back through the knee compartments to evaluate for other abnormalities. Finding none, attention was directed to closure. The knee was copiously irrigated and suctioned dry. Following this, each portal was closed with a simple suture followed by Dermabond and Tegaderm. Additionally, the knee was injected with 20 mL of half percent ropivacaine and 8 mg of morphine. Additional 10 mL of ropivacaine was placed about the portals. Sterile dressing was placed consisting of the Tegaderm followed by the Abel wrap. Patient was returned to Recovery Room in satisfactory condition where she will be discharged home to follow-up in the office as scheduled. There were no complications and no specimens. Related Problem List Diagnoses (1) Chondromalacia patellae of right knee: (2) Patellar instability of right knee: (3) Tear of lateral meniscus of right knee:
[2024-12-17] MEDS: HYDROcodone-acetaminophen 5-325 mg Tablet 1 TAB PO (09:40)
--- NOTE | 2024-12-17 10:15 | ANE.PACU2 ---
Inpatient post-anesthesia follow up: Airway intact: Yes Vital signs: Temperature 97.6 F Pulse Rate 82 Respiratory Rate 18 Blood Pressure 122/78 Pulse Oximetry 98 Oxygen Delivery Me thod Room Air Oxygen Flow Rate Fraction of Inspir ed Oxygen Hydration adequate: Yes Nausea and vomiting: No Pain level: 1 Mental status: Baseline
== END 2024-12-17 10:14 | disposition home or self-care (01) ==
PROVIDERS: Anesthesiology; PCP Family Medicine; Visit Provider Specialist
PROC: (CPT 29870; principal; 2024-12-17 07:00)
PROC: (CPT 29881; 2024-12-17 07:00)
DX: M22.41 Chondromalacia patellae, right knee (principal); S83.281A Other tear of lateral meniscus, current injury, right knee, initial encounter; M65.961 Unspecified synovitis and tenosynovitis, right lower leg; Z79.899 Other long term (current) drug therapy; Z72.0 Tobacco use
CPT/HCPCS: 29881; 81025; J0131; J0690; J1100; J2250; J2270; J2371; J2405; J2704; J2795; J3010; J7030

== ENCOUNTER → 2025-04-12 10:43 | Outpatient (BNVA) | payer MEDICAID, SELFPAY | PROVIDERS: PCP Family Medicine; Visit Provider Specialist | DX: M06.4 Inflammatory polyarthropathy (principal); M25.511 Pain in right shoulder; M25.531 Pain in right wrist | CPT/HCPCS: 36415; 73110; 80053; 84550; 85025; 85651; 86140; 86200; 86225; 86235; 86431 ==

== ENCOUNTER 2025-04-26 12:58 | Outpatient (CLI) | payer MEDICAID, SELFPAY ==
--- NOTE | 2025-04-26 13:00 | MRR_ITS ---
PROCEDURE INFORMATION: Exam: MR Right Upper Extremity Joint Without Contrast; Wrist Exam date and time: 04/26/2025 1:10 PM Age: 29 years old Clinical indication: Right; Pain in wrist for a few months PT states shes had injuries in the past; Additional info: Wrist pain TECHNIQUE: Imaging protocol: Magnetic resonance imaging of the right upper extremity without contrast. Exam focused on the wrist. COMPARISON: CR XR wrist RT min 3V* [id number] 04/12/2025 10:46 AM FINDINGS: Bones/joints: Radiocarpal articulation, distal radioulnar joint and carpal rows are intact without evidence of fracture or malalignment. Trace radiocarpal and distal radioulnar joint effusions. There are multiple ganglion cysts in the volar soft tissues. For example, there is a 12 x 4 mm ganglion cyst along the volar aspect of the distal radial metaphysis (for example, images 17-18 of series 1201). 9 x 7 x 8 mm septated ganglion cyst in the volar radial superficial soft tissues with a neck extending into the roof of the carpal tunnel (for example, images 9-13 of series 1201). Scapholunate ligament: Grossly intact. Lunotriquetral ligament: Grossly intact. Triangular fibrocartilage complex: Grossly intact. If further detail is clinically warranted, consider correlation with follow-up outpatient MR arthrography. Flexor compartment tendons: Intact. Median nerve is normal in signal, caliber and course. Extensor compartment tendons: Intact. MR/MR wrist RT wo con* [id number] IMPRESSION: 1. No evidence of fracture, gross ligamentous or tendon disruption. If further detail is clinically warranted, consider correlation with follow-up outpatient MR arthrography. 2. Prominent septated ganglion cysts in the volar radial superficial soft tissues with a neck extending into the carpal tunnel.
== END 2025-04-26 12:59 | disposition home or self-care (01) ==
LOC: RAD 13:01
PROVIDERS: PCP Family Medicine; Visit Provider Specialist
DX: M67.431 Ganglion, right wrist (principal)
CPT/HCPCS: 73221

== ENCOUNTER → 2025-08-25 15:45 | Outpatient (BNVA) | payer MEDICAID, SELFPAY | PROVIDERS: PCP Family Medicine; Visit Provider Obstetrics & Gynecology | DX: R30.0 Dysuria (principal) | CPT/HCPCS: 84315; 87086 ==